=== PATIENT | female | born 1990 | race Caucasian/White ===

== ENCOUNTER 2018-03-07 11:14 | Emergency (ER) | payer MEDICAID, SELFPAY ==
[2018-03-07 11:15] VITALS: BP 117/70; PULSE 115; RESP 18; TEMP 37.1; O2SAT 97; BMI 32.1
[2018-03-07 11:47] LABS: Mucous, Urine 0 SEEN /hpf (<or=2+)
[2018-03-07 11:50] LABS: Color, Urine Yellow (Yellow); Glucose, Dipstick Normal (Normal); Ketone-Dipstick Negative (Negative); Leukocyte Esterase-Dipstick 500 /ul (Negative); Nitrite-Dipstick Positive (Negative); Occult Blood-Urine 50 /ul (Negative); Protein-Dipstick 30 mg/dl (Negative); Urine Bilirubin Dipstick Negative (Negative); Urine Clarity Sl. Cloudy (Clear); Urine Urobilinogen Normal (Normal); Urine pH 6.5 (5.0 - 8.0)
[2018-03-07 11:53] LABS: Internal QC Validated? YES +Cl - CLEAR BKGD; Pregnancy, Urine Negative Negative
[2018-03-07 12:15] LABS: Bacteria 4+ /hpf (None Seen); Red Blood Cells-Urine 0-5 SEEN /hpf (0-5); Squamous Epithelial Cells - UA 0-5 SEEN /hpf (5-10); White Blood Cells 10-25 SEEN /hpf (0-5)
--- NOTE | 2018-03-07 12:28 | ED.DCSUM_ITS ---
- ER Visit Summary Date of Service: 03/07/18 Chief Complaint: [Back pain] History of Present Illness: The patient is a 28 F [presents the emergency department with low back discomfort ?3 days. Patient states the pain is mild at this time and rates it a 5 out of 10. Patient denies any injury to her back. Patient denies dysuria however she has had urinary frequency. Patient states she has had similar pain in the past when she has had a urinary tract infection. Last menstrual period was about 6 months ago due to the fact that she is on the Depo shot.] Patient denies any fever or vomiting. Patient denies any pain down the legs. Denies change in bowel or bladder function otherwise. Physical Examination: [HEENT-PERRLA, EOMI. Cranial nerves II through XII grossly intact. TMs clear. Mucous membranes moist. No adenopathy. Cardiovascular-regular rate and rhythm without murmur or ectopy Lungs-clear to auscultation, chest wall stable without crepitus or subcu emphysema Abdomen-normoactive bowel sounds, soft, nontender, no rebound or rigidity, no peritoneal signs. Back exam-I cannot reproduce her pain with palpation of her back. She has no tenderness in the thoracic or lumbar spine. Patient has negative straight leg raises. Deep tendon reflexes are plus 2 out of 4 bilaterally at the patella and Achilles. Patient has normal L5 extension. Extremities-intact ?4, normal range of motion, normal pulses, atraumatic] Test Results: [Urinalysis obtained was positive for UTI. Patient had 500 leukocyte esterase, positive nitrites, +10-25 WBCs and +4 bacteria.] Urine hCG was negative Emergency Department Course and Treatment: [Patient was started on Bactrim] Treatment Plan: [Patient will be started on Bactrim and Pyridium] Disposition: [Discharged home in stable condition] Impression: [Urinary tract infection] This note was generated with [employer] dictation software. It may contain incorrect words, spelling, and punctuation that were not noted in review of the chart prior to signing ED Disposition - Plan for ED Patient: Chief Complaint: Back Referrals: Matti Burr DO [Primary Care Provider] -
--- NOTE | 2018-03-07 12:28 | ED.DEP ---
ED Disposition - Plan for ED Patient: Chief Complaint: Back Instructions: ED UTI Cystitis Female Prescriptions: Phenazopyridine HCl [Pyridium] 200 mg PO BID PRN PRN #10 tab PRN Reason: Pain Smz/Tmp Ds [Bactrim Ds] 1 tab PO BID #10 tab Referrals: Matti Burr DO [Primary Care Provider] - 3-5 Days
[2018-03-07] MEDS: Smz/Tmp Ds Tablet 1 TABLET PO (12:42)
[2018-03-07 12:44] VITALS: BP 113/59; PULSE 72; RESP 16; O2SAT 98
== END 2018-03-07 12:45 | disposition home or self-care (01) ==
LOC: ED 12:44
PROVIDERS: Emergency Provider Emergency Medicine; Family Provider Preventive Medicine Occupational Medicine; PCP Preventive Medicine Occupational Medicine
DX: N39.0 Urinary tract infection, site not specified (principal); Z72.0 Tobacco use; Z79.899 Other long term (current) drug therapy
CPT/HCPCS: 81001; 81025; 99283; A4216

== ENCOUNTER 2018-07-16 10:52 | Emergency (ER) | payer MEDICAID, SELFPAY ==
[2018-07-16 10:53] VITALS: BP 131/93; PULSE 99; RESP 18; TEMP 37.3; O2SAT 98; BMI 32.8
--- NOTE | 2018-07-16 11:03 | ED.VISSUMM ---
- ER Visit Summary Date of Service: 07/16/18 Chief Complaint: Left ankle injury History of Present Illness: The patient is a 28 F who presents with a left ankle injury that occurred yesterday. Patient states her uncle picked her up and they fell. Patient states she everted her ankle. Patient states her uncle landed on the lateral aspect of her ankle. Patient states she felt and heard a pop. Patient states her pain is worse with movement and weightbearing. Patient denies any paresthesias or weakness. Patient denies any head injury or loss of consciousness. Patient denies any other injuries. Physical Examination: Vital signs are stable. Patient is afebrile. Patient is in no acute distress. Musculoskeletal exam reveals tenderness over the lateral malleolus. There is no bony crepitance or step-off. Range of motion was limited in all motions of the left ankle secondary to pain. Pedal pulses were equal bilaterally. Capillary refill is less than 2 seconds in all digits. Sensation was intact to light touch in all digits. There is no tenderness over the fifth metatarsal or proximal fibula. Test Results: X-rays of the left ankle were obtained. There is no acute fracture. Emergency Department Course and Treatment: Patient was given an Aircast. Patient was instructed to ice and elevate the left ankle. Patient was instructed to take Tylenol or ibuprofen as needed for pain. Patient was instructed to follow-up with her primary care physician in 7-10 days. Patient understood and was agreeable with the plan. All questions were answered. Disposition: Discharge home Impression: Acute sprain left ankle This note was generated with [employer] dictation software. It may contain incorrect words, spelling, and punctuation that were not noted in review of the chart prior to signing ED Disposition - Plan for ED Patient: Disposition: Home or Assisted Living Chief Complaint: Lower Extremity Injury Diagnosis: Sprain of left ankle Instructions: ED Sprain Ankle W X Ray Referrals: Matti Burr DO [Primary Care Provider] -
== END 2018-07-16 12:49 | disposition home or self-care (01) ==
PROVIDERS: Emergency Provider Emergency Medicine; Family Provider Preventive Medicine Occupational Medicine; PCP Preventive Medicine Occupational Medicine
DX: S93.402A Sprain of unspecified ligament of left ankle, initial encounter (principal); W04.XXXA Fall while being carried or supported by other persons, initial encounter; Y93.9 Activity, unspecified; Y92.9 Unspecified place or not applicable; Y99.9 Unspecified external cause status; F98.8 Other specified behavioral and emotional disorders with onset usually occurring in childhood and adolescence; Z72.0 Tobacco use; Z79.899 Other long term (current) drug therapy
CPT/HCPCS: 73610; 99283

== ENCOUNTER 2018-07-23 19:39 | Emergency (ER) | payer MEDICAID, SELFPAY ==
[2018-07-23 19:40] VITALS: BP 134/75; PULSE 65; RESP 18; TEMP 36.8; O2SAT 100; BMI 34.0
[2018-07-23 20:01] VITALS: RESP 16
[2018-07-23 20:30] LABS: Absolute Lymphocyte Count 3.34 X10^3/ul (0.83-4.51); Absolute Neutrophil Count 4.2 X10^3/uL (2.0-7.7); Basophil# 0.02 X10^3/uL; Basophil% 0.2 % (0-1); Eosinophil# 0.25 X10^3/uL; Hematocrit 37.8 % (37-47); Hemoglobin 13.2 g/dl (12.0-15.0); Lymphocyte # 3.34 X10^3/ul (4.0); Lymphocyte % 40.6 % (19-41); Mean Corp Hgb Conc 34.9 g/gl (32-36); Mean Corpuscular Hgb 35.1 pg (27.0-32.0); Mean Corpuscular Volume 100.5 fL (81-99); Mean Platelet Vol. 8.3 fl (6.2-12.0); Monocyte# 0.41 X10^3/uL; Neutrophil % 51.1 % (47-70); Platelet Count 296 K/mm3 (150-450); RBC Distribution Width CV 12.6 % (11.6-14.6); RBC Distribution Width SD 46.2 fl (35.1-43.9); Red Blood Count 3.76 M/mm3 (4.2-5.4); White Blood Count 8.2 K/mm3 (4.4-11.0)
[2018-07-23 20:42] LABS: POSITIVE COUNT NO; POSITIVE DIFFERENTIAL NO; POSITIVE MORPHOLOGY NO
[2018-07-23 20:51] LABS: Anion Gap 6 (5-15); BUN 15 mg/dL (7-18); BUN/Creat Ratio 17.7 RATIO (10-20); Calcium,Total 8.9 mg/dL (8.5-10.1); Chloride 108 mmol/L (98-107); Creatinine, Serum 0.85 mg/dL (0.55-1.02); EST Glomerular Filtration Rate 85 mL/min (>60); Est Glom Filt Rate - Afr Amer 103 mL/min (>60); Estimated Creatinine Clearance 82.24 ml/min; Glucose 101 mg/dL (74-106); Potassium 3.7 mmol/L (3.5-5.1); Sodium Level 142 mmol/L (136-145)
[2018-07-23 21:00] VITALS: RESP 18
[2018-07-23 21:02] LABS: Alcohol, Blood (Medical)-Serum < 3.0 mg/dL
[2018-07-23 21:03] LABS: Pregnancy, Serum, hCG Quali. NEGATIVE Negative (0-9 Nonpreg)
[2018-07-23 21:04] LABS: Amphetamine Urine VISTA NEGATIVE (<1000 ng/mL); Barbiturate Urine VISTA NEGATIVE (< 200 ng/mL); Benzodiazepine Urine VISTA NEGATIVE (< 200 ng/mL); Cocaine Urine VISTA NEGATIVE (< 300 ng/mL); Ecstacy Urine VISTA NEGATIVE (< 500 ng/mL); Methadone Urine VISTA NEGATIVE (< 300 ng/mL); PCP Urine VISTA NEGATIVE (< 25 ng/mL); THC Urine VISTA NEGATIVE (< 50 ng/mL); Vista UDS pH Range 6
--- NOTE | 2018-07-23 21:26 | ED.RN ---
krystina richards at the patients bedside for one on one observation of patient at this time
--- NOTE | 2018-07-23 21:37 | ED.VISSUMM ---
- ER Visit Summary Date of Service: 07/23/18 Chief Complaint: Depression History of Present Illness: The patient is a [address] Hair. She reports that she has a long-standing history of depression, but has not been on medication since she was a child. Seems to is worsened over the past 6 months. She reports that she does not have a suicidal plan as of right now. However, she does not feel safe around her kids. She has a 2-year-old and 4-year-old at home. She reports that today she snatched up her son and freaked out. Physical Examination: Vitals: Stable. Afebrile. General: Well-nourished and well-developed. Head: Normocephalic atraumatic. Neck: Supple, no lymphadenopathy. No JVD. Nontender. Cardiovascular: Regular rate and rhythm. No murmurs. Respiratory: No respiratory distress. Clear to auscultation bilaterally. Abdominal: Soft, nontender, nondistended, normal bowel sounds. No guarding, rebound, or peritoneal signs. Back: Nontender. Extremities: Nontender, no edema. Skin: Normal color, no rash. Neurologic: Alert and oriented ?3. Cranial nerves II through XII are intact. Normal strength and sensation. Mental status exam: Patient appears their stated age. Good posture and grooming. Good eye contact. Normal rate, volume, and latency of speech. No suicidal or homicidal ideation. No auditory or visual hallucinations. Flow of thought is logical. Insight and judgment is fair. Test Results: CBC is normal. Chem-7 is marked for chloride of 108. test is negative. Tox screen is negative. Alcohol levels negative. Emergency Department Course and Treatment: Patient's resting comfortably throughout her stay and emerge part without complaint. Treatment Plan: Patient will be discussed the counseling center. They will be in to assess her. Disposition: [] Impression: [] This note was generated with [employer] dictation software. It may contain incorrect words, spelling, and punctuation that were not noted in review of the chart prior to signing ED Disposition - Plan for ED Patient: Chief Complaint: Suicidal Referrals: Matti Burr DO [Primary Care Provider] -
--- NOTE | 2018-07-23 21:44 | ED.DCSUM_ITS ---
- ER Visit Summary Date of Service: 07/23/18 Chief Complaint: Depression History of Present Illness: The patient is a [address] Hair. She reports that she has a long-standing history of depression, but has not been on medication since she was a child. Seems to is worsened over the past 6 months. She reports that she does not have a suicidal plan as of right now. However , she does not feel safe around her kids. She has a 2-year-old and 4-year-old at home. She reports that today she snatched up her son and freaked out. Physical Examination: Vitals: Stable. Afebrile. General: Well-nourished and well-developed. Head: Normocephalic atraumatic. Neck: Supple, no lymphadenopathy. No JVD. Nontender. Cardiovascular: Regular rate and rhythm. No murmurs. Respiratory: No respiratory distress. Clear to auscultation bilaterally. Abdominal: Soft, nontender, nondistended, normal bowel sounds. No guarding, rebound, or peritoneal signs. Back: Nontender. Extremities: Nontender, no edema. Skin: Normal color, no rash. Neurologic: Alert and oriented ?3. Cranial nerves II through XII are intact. Normal strength and sensation. Mental status exam: Patient appears their stated age. Good posture and grooming. Good eye contact. Normal rate, volume, and latency of speech. No suicidal or homicidal ideation. No auditory or visual hallucinations. Flow of thought is logical. Insight and judgment is fair. Test Results: CBC is normal. Chem-7 is marked for chloride of 108. test is negative. Tox screen is negative. Alcohol levels negative. Emergency Department Course and Treatment: Patient's resting comfortably throughout her stay and emerge part without complaint. Treatment Plan: Patient will be discussed the counseling center. They will be in to assess her. Disposition: [] Impression: [] This note was generated with [employer] dictation software. It may contain incorrect words, spelling, and punctuation that were not noted in review of the chart prior to signing ED Disposition - Plan for ED Patient: Chief Complaint: Suicidal Referrals: Matti Burr DO [Primary Care Provider] -
--- NOTE | 2018-07-23 21:45 | ED.RN ---
GAVE CHART INFORMATION TO PRANAV. I HAVE TO GO SEE SOMEONE ELSE, I WILL CHECK ON THIS PATIENT BEFORE I GO AND THEN I WILL BE BACK
[2018-07-23 22:00] VITALS: RESP 16
[2018-07-23 23:00] VITALS: RESP 16
[2018-07-24] VITALS (8 sets, daily range): BP systolic 108–118; BP diastolic 55–76; PULSE 70–84; RESP 14–16; O2SAT 97–98
--- NOTE | 2018-07-24 05:48 | ED.RN ---
matt hendricks called requested information about patient at this time. Unable to read Grover Mathews's assessment at this time. Dictation sent at this time
--- NOTE | 2018-07-24 09:32 | NURSING ---
CALLED [facility], TALKED TO [facility]. THEY WILL CALL BACK.
--- NOTE | 2018-07-24 09:42 | NURSING ---
[facility], [facility], CALLED. SHE CALLED [facility], PATIENT IS NOT ACCEPTED AT THIS TIME
--- NOTE | 2018-07-24 10:53 | NURSING ---
CALLED [facility], TALKED TO [facility]. SHE WILL CHECK WITH [facility] ABOUT PATIENT STATUS.
--- NOTE | 2018-07-24 11:09 | NURSING ---
[facility], [facility], CALLED BACK. [facility] WILL BE OVER SHORTLY
[2018-07-24] MEDS: LORazepam 1 MG Tablet PO (14:32)
--- NOTE | 2018-07-24 15:21 | NURSING ---
CALLED [facility] FOR TRANSPORT. ETA IS 1700
== END 2018-07-24 17:07 ==
LOC: ED 20:28
PROVIDERS: Emergency Provider Emergency Medicine; Family Provider Preventive Medicine Occupational Medicine; PCP Preventive Medicine Occupational Medicine
DX: F32.9 Major depressive disorder, single episode, unspecified (principal); F41.9 Anxiety disorder, unspecified; R45.851 Suicidal ideations; F98.8 Other specified behavioral and emotional disorders with onset usually occurring in childhood and adolescence; Z72.0 Tobacco use; Z79.899 Other long term (current) drug therapy
CPT/HCPCS: 36415; 80048; 80307; 80320; 84703; 85025; 99284; G0480

== ENCOUNTER 2019-02-27 09:01 | Emergency (ER) | payer MEDICAID, SELFPAY ==
[2019-02-27 09:02] VITALS: BP 130/72; PULSE 111; RESP 18; TEMP 36.8; O2SAT 98; BMI 37.2
--- NOTE | 2019-02-27 09:19 | ED.VISSUMM ---
- ER Visit Summary Date of Service: 02/27/19 Chief Complaint: Abdominal cramping History of Present Illness: The patient is a 29 F presenting for evaluation secondary to abdominal cramping. Patient is a at 6 weeks . Patient reports that over the course of the last 2 days she has been dealing with lower abdominal cramping predominantly on the left. Patient states that these are continuous symptoms with no exacerbating or relieving qualities. She denies any dysuria hematuria vaginal bleeding or discharge. She does endorse that she has a mild amount of cramping in her back. No nausea or vomiting. No fevers associated with this. Review of systems otherwise negative. Physical Examination: Vital signs are within normal limits, patient is afebrile. General: Patient is well-nourished well-developed and in no acute distress. Head: Normocephalic, atraumatic Eyes: Pupils equal round and reactive bilaterally, extra occular motion intact bialterally ENT: Moist mucous membranes Neck: Supple, no lymphadenopathy, no JVD, no meningismus CVS: Heart regular rate and rhythm, no murmurs, rubs or gallops, radial pulses 2+ bilaterally Resp: Respirations nondistressed, lung sounds clear bilaterally Abdomen: Soft, nontender, nondistended, no palpable masses, normal bowel sounds Back: Nontender Extremities: Nontender, atraumatic, active full range of motion, no peripheral edema Skin: warm, no rashes, no petechia Neuro: Alert and oriented x 4, CN 2-12 intact, no lateralizing neurological defecits Psyc: Normal affect Test Results: Urinalysis demonstrates 0-5 white cells, and +1 bacteria Emergency Department Course and Treatment: Patient presented secondary to pelvic cramping. Physical exam is benign, I do not believe that any formal imaging or blood work is indicated. Urinalysis showed +1 bacteria. Bedside ultrasound demonstrates a gestational sac, but no identified pole on the transabdominal study. Given the patient's bacteriuria, I believe that it is appropriate to treat the patient with a short course of Macrobid. Patient will follow up with ATMOSPHERIC SCIENTIST. Disposition: Discharge Impression: 1. UTI 2. 6-week This note was generated with [employer] software. It may contain incorrect words, spelling, and punctuation that were not noted in review of the chart prior to signing ED Disposition - Plan for ED Patient: Disposition: Home or Assisted Living Diagnosis: UTI (urinary tract infection), First trimester Instructions: ED UTI Cystitis Female Prescriptions: Nitrofurantoin Macrocrystals [Macrobid] 100 mg PO Q12 #6 cap Referrals: Mallory Del Rio MD [STAFF PHYSICIAN] - 1-2 Weeks
--- NOTE | 2019-02-27 09:22 | ED.DCSUM_ITS ---
- ER Visit Summary Date of Service: 02/27/19 Chief Complaint: Abdominal cramping History of Present Illness: The patient is a 29 F presenting for evaluation secondary to abdominal cramping. Patient is a at 6 weeks . Patient reports that over the course of the last 2 days she has been dealing with lower abdominal cramping predominantly on the left. Patient states that these are continuous symptoms with no exacerbating or relieving qualities. She denies any dysuria hematuria vaginal bleeding or discharge. She does endorse that she has a mild amount of cramping in her back. No nausea or vomiting. No fevers associated with this. Review of systems otherwise negative. Physical Examination: Vital signs are within normal limits, patient is afebrile. General: Patient is well-nourished well-developed and in no acute distress. Head: Normocephalic, atraumatic Eyes: Pupils equal round and reactive bilaterally, extra occular motion intact bialterally ENT: Moist mucous membranes Neck: Supple, no lymphadenopathy, no JVD, no meningismus CVS: Heart regular rate and rhythm, no murmurs, rubs or gallops, radial pulses 2+ bilaterally Resp: Respirations nondistressed, lung sounds clear bilaterally Abdomen: Soft, nontender, nondistended, no palpable masses, normal bowel sounds Back: Nontender Extremities: Nontender, atraumatic, active full range of motion, no peripheral edema Skin: warm, no rashes, no petechia Neuro: Alert and oriented x 4, CN 2-12 intact, no lateralizing neurological defecits Psyc: Normal affect Test Results: Urinalysis demonstrates 0-5 white cells, and +1 bacteria Emergency Department Course and Treatment: Patient presented secondary to pelvic cramping. Physical exam is benign, I do not believe that any formal imaging or blood work is indicated. Urinalysis showed +1 bacteria. Bedside ultrasound demonstrates a gestational sac, but no identified pole on the transabdominal study. Given the patient's bacteriuria, I believe that it is appropriate to treat the patient with a short course of Macrobid. Patient will follow up with DIGITAL CONTENT SPECIALIST. Disposition: Discharge Impression: 1. UTI 2. 6-week This note was generated with [employer] software. It may contain incorrect words, spelling, and punctuation that were not noted in review of the chart prior to signing ED Disposition - Plan for ED Patient: Disposition: Home or Assisted Living Diagnosis: UTI (urinary tract infection), First trimester Instructions: ED UTI Cystitis Female Prescriptions: Nitrofurantoin Macrocrystals [Macrobid] 100 mg PO Q12 #6 cap Referrals: Mallory Del Rio MD [STAFF PHYSICIAN] - 1-2 Weeks
[2019-02-27 09:32] LABS: Mucous, Urine 0 SEEN /hpf (<or=2+); Red Blood Cells-Urine 0 SEEN /hpf (0-5)
[2019-02-27 09:36] LABS: Color, Urine Yellow (Yellow); Glucose, Dipstick Normal (Normal); Ketone-Dipstick Negative (Negative); Leukocyte Esterase-Dipstick 100 /ul (Negative); Nitrite-Dipstick Negative (Negative); Occult Blood-Urine Negative /ul (Negative); Protein-Dipstick Negative (Negative); Specific Gravity, Urine 1.015 (1.002-1.030); Urine Bilirubin Dipstick Negative (Negative); Urine Clarity Clear (Clear); Urine Urobilinogen Normal (Normal)
[2019-02-27 09:45] LABS: Bacteria 1+ /hpf (None Seen); Squamous Epithelial Cells - UA 0-5 SEEN /hpf (5-10); White Blood Cells 0-5 SEEN /hpf (0-5)
== END 2019-02-27 09:57 | disposition home or self-care (01) ==
PROVIDERS: Emergency Provider Emergency Medicine; Family Provider Preventive Medicine Occupational Medicine; PCP Preventive Medicine Occupational Medicine
DX: O23.41 Unspecified infection of urinary tract in pregnancy, first trimester (principal); Z3A.01 Less than 8 weeks gestation of pregnancy
CPT/HCPCS: 81001; 99282

== ENCOUNTER 2019-08-28 19:20 | Outpatient (CLI) | payer MEDICAID, SELFPAY ==
[2019-08-28 19:45] VITALS: BMI 34.7
[2019-08-28 20:19] LABS: Bacteria 0 SEEN /hpf (None Seen); Mucous, Urine 0 SEEN /hpf (<or=2+); Red Blood Cells-Urine 0 SEEN /hpf (0-5); White Blood Cells 0 SEEN /hpf (0-5)
[2019-08-28 20:24] LABS: Color, Urine Yellow (Yellow); Glucose, Dipstick Normal (Normal); Ketone-Dipstick Negative (Negative); Leukocyte Esterase-Dipstick 25 /ul (Negative); Nitrite-Dipstick Negative (Negative); Occult Blood-Urine Negative /ul (Negative); Protein-Dipstick Negative (Negative); Urine Bilirubin Dipstick Negative (Negative); Urine Clarity Clear (Clear); Urine Urobilinogen Normal (Normal)
[2019-08-28 20:33] LABS: Squamous Epithelial Cells - UA 0-5 SEEN /hpf (5-10)
[2019-08-28 21:19] VITALS: RESP 18
--- NOTE | 2019-08-29 06:49 | OB.TRI.NOTE ---
History of Present Illness Date of Service: 08/28/19 Was patient seen by the physician?: No Reason For Visit: CRAMPING Date of Service: 08/28/19 Final MYLA: 10/23/19 Gestational age: 32 Weeks and 1 Days Allergies No Known Allergies Allergy (Verified 08/28/19 19:45) Laboratory Studies: Laboratory Tests 08/28/19 Range/Units 19:20 Urine Color Yellow (Yellow) Urine Clarity Clear (Clear) Urine pH 8.0 (5.0 - 8.0) Ur Specific [place] 1.010 (1.002-1.030) Urine Protein Negative (Negative) mg/dl Urine Glucose (UA) Normal (Normal) mg/dl Urine Ketones Negative (Negative) mg/dl Urine Occult Blood Negative (Negative) /ul Urine Nitrite Negative (Negative) Urine Bilirubin Negative (Negative) mg/dL Urine Urobilinogen Normal (Normal) mg/dl Ur Leukocyte Esterase 25 H (Negative) /ul Urine RBC 0 SEEN (0-5) /hpf Urine WBC 0 SEEN (0-5) /hpf Ur Squamous Epith Cells 0-5 SEEN (5-10) /hpf Urine Bacteria 0 SEEN (None Seen) /hpf Urine Mucus 0 SEEN (<or=2+) /hpf Physical Exam Vitals: Vital Signs Resp 18 08/28/19 21:19 NST - FHR Rate Baby A Baseline: 145 Variability:: Moderate Accelerations:: 15 x 15 Decelerations:: None NST Reactive:: Yes, Appropriate for gestational age FHR Category:: Category I Uterine Activity:: no ctxs Impression/Plan 29-year-old 4 para 3 high risk multigravida patient with threatened labor. Abdominal cramping, no evidence of labor. Patient was discharged home with labor precautions and follow-up in the office as scheduled or as needed.
== END 2019-08-28 21:15 | disposition home or self-care (01) ==
LOC: WPOUT 19:25 → WP 19:25
PROVIDERS: Advanced Practice Midwife; Family Provider Preventive Medicine Occupational Medicine; PCP Preventive Medicine Occupational Medicine; Visit Provider Obstetrics & Gynecology
DX: O60.03 Preterm labor without delivery, third trimester (principal); Z3A.32 32 weeks gestation of pregnancy
CPT/HCPCS: 59025; 59050; 81001; 99218; G0378

== ENCOUNTER 2019-09-30 19:10 | Outpatient (CLI) | payer MEDICAID, SELFPAY ==
[2019-09-30 20:04] VITALS: BMI 35.4
[2019-09-30 20:39] LABS: Color, Urine Yellow (Yellow); Glucose, Dipstick Normal (Normal); Ketone-Dipstick Negative (Negative); Leukocyte Esterase-Dipstick Negative /ul (Negative); Nitrite-Dipstick Negative (Negative); Occult Blood-Urine Negative /ul (Negative); Protein-Dipstick Negative (Negative); Specific Gravity, Urine 1.005 (1.002-1.030); Urine Bilirubin Dipstick Negative (Negative); Urine Clarity Clear (Clear); Urine Urobilinogen Normal (Normal)
[2019-09-30 20:49] LABS: ROM Internal Control Test YES-OK TO RESULT pt. (Internal QC); ROM Patient Test Negative (Negative)
--- NOTE | 2019-10-03 10:02 | OB.TRI.HP_ITS ---
History of Present Illness Date of Service: 09/30/19 Was patient seen by the physician?: No Reason For Visit: CONSTIPATION Date of Service: 09/30/19 Final MYLA: 10/23/19 Gestational age: 36w 5d Allergies No Known Allergies Allergy (Verified 09/30/19 20:06) Laboratory Studies: Laboratory Tests 09/30/19 09/30/19 Range/Units 20:00 20:00 Urine Color Yellow (Yellow) Urine Clarity Clear (Clear) Urine pH 7.0 (5.0 - 8.0) Ur Specific [place] 1.005 (1.002-1.030) Urine Protein Negative (Negative) mg/dl Urine Glucose (UA) Normal (Normal) mg/dl Urine Ketones Negative (Negative) mg/dl Urine Occult Blood Negative (Negative) /ul Urine Nitrite Negative (Negative) Urine Bilirubin Negative (Negative) mg/dL Urine Urobilinogen Normal (Normal) mg/dl Ur Leukocyte Esterase Negative (Negative) /ul Vag Amniotic Fld Detect Negative (Negative) NST - FHR Rate Baby A Baseline: 140 Variability:: Moderate Accelerations:: 15 x 15 Decelerations:: None NST Reactive:: Yes FHR Category:: Category I Uterine Activity:: irreg. ctxs Impression/Plan 9-year-old 4 para 3 high risk multigravida presents complaining of constipation. Symptomatic measures were reviewed with patient. Discharge home with routine instructions. Urinalysis was negative for acute infection. ROM plus was negative for evidence of rupture membranes. Follow-up in the office as needed or as scheduled.
== END 2019-09-30 21:30 | disposition home or self-care (01) ==
LOC: WPOUT 19:16 → WP 19:59
PROVIDERS: Family Provider Preventive Medicine Occupational Medicine; PCP Preventive Medicine Occupational Medicine; Referring Provider Advanced Practice Midwife; Visit Provider Advanced Practice Midwife
DX: O99.613 Diseases of the digestive system complicating pregnancy, third trimester (principal); Z3A.36 36 weeks gestation of pregnancy; K59.00 Constipation, unspecified
CPT/HCPCS: 59025; 59050; 81002; 84112; 99218; G0378

== ENCOUNTER 2019-10-15 07:00 | Inpatient (IN) | payer MEDICAID, SELFPAY ==
[2019-10-15 07:27] VITALS: BMI 35.9
[2019-10-15] MEDS: Lactated Ringers 1,000 ML 50 ML IV (07:50)
[2019-10-15] MEDS: Oxytocin 30 units/NS 500 ml 30 UNITS/500 ML IV.SOLN IV (07:59)
[2019-10-15 08:08] LABS: Absolute Lymphocyte Count 2.52 X10^3/uL (0.83-4.51); Absolute Neutrophil Count 6.9 X10^3/uL (2.0-7.7); Basophil# 0.03 X10^3/uL; Basophil% 0.3 % (0-1); Eosinophil# 0.11 X10^3/uL; Eosinophils% 1.1 % (0-5); Hematocrit 33.1 % (37-47); Hemoglobin 12.1 g/dL (12.0-15.0); Lymphocyte # 2.52 X10^3/ul (4.0); Lymphocyte % 24.7 % (19-41); Mean Corp Hgb Conc 36.6 g/dL (32-36); Mean Corpuscular Hgb 36.7 pg (27.0-32.0); Mean Corpuscular Volume 100.3 fL (81-99); Monocyte# 0.62 X10^3/uL; Monocyte% 6.1 % (0-10); NRBC Flagged by Analyzer 0 % (0-5); Neutrophil # 6.86 X10^3/uL (2.7-7.7); Neutrophil % 67.2 % (47-70); Platelet Count 254 K/mm3 (150-450); RBC Distribution Width SD 47.6 fl (35.1-43.9); White Blood Count 10.2 K/mm3 (4.4-11.0)
[2019-10-15] MEDS: 0.9% Normal Saline 100 ML IV.SOLN. IY (08:25)
[2019-10-15] MEDS: Lactated Ringers 500 ML 999 ML IV (11:14)
[2019-10-15] MEDS: fentaNYL-bupivacaine (epidural) 100 ML BAG EPIDURAL ×2 (12:23→17:00)
[2019-10-15] MEDS: Acetaminophen 325 MG Tablet PO (13:05)
[2019-10-15] MEDS: Lactated Ringers 1,000 ML 200 ML IV ×2 (13:10→17:35)
[2019-10-15] MEDS: Oxytocin 30 units/NS 500 ml 30 UNITS/500 ML IV.SOLN 334 UNITS IV (17:59)
--- NOTE | 2019-10-15 18:15 | HP.PCM_ITS ---
History Date of Admission: 10/15/19 Final MYLA: 10/23/19 Gestational age: 38 Weeks and 6 Days History of this : This is a 29 year-old, 4 para 3 at 38-6/7 weeks with persistent decreased movement, high risk multigravida , tobacco use during presents for induction of labor. She denies any vaginal bleeding or leaking of fluid. She has irregular contractions. She is been complaining of pain severe enough that is been difficult to walk for several weeks. Apical history is significant for herpes, bipolar disorder, history of LEEP of the cervix for abnormal Pap smears, history of mitral valve prolapse, history of preeclampsia with prior pregnancies, history of trichomonas during the . Had 3 term vaginal deliveries in the past. Allergies No Known Allergies Allergy (Verified 10/15/19 07:28) Smoking Status: Current every day smoker Alcohol: None Number of Fetus(es): 1 History Past Pregnancies: Past Pregnancies Delivery Date Name GA/ Weeks Outcome Route Wt Sex Labor Length Anesthesia Delivery Location Provider FOB Expected Delivery Method: Spontaneous Vaginal Review of Systems Constitutional: Denies: Chills, Fever Eyes: Denies: Blurred vision Cardiovascular: Denies: Chest Pain Respiratory: Denies: Cough Genitourinary: Reports: - - some pressure. Denies: Dysuria Skin: Denies: Rash Neurological: Denies: Blurred vision, Change in Speech Psychiatric: Denies: Anxiety, Depression Hematologic/ Lymphatic: Denies: Anemia Physical Exam General: Alert, Cooperative, No apparent distress Cardiovascular: Regular rate Lungs: Normal air movement Abdomen: Soft, Non-Distended, Gravid, Appropriate for Gestational Age Extremities:: Other - trace edema Neurological: Cranial nerves II-XII grossly intact, Deep Tendon Reflexes 2+/[address] SQL DEVELOPER: Normal external genitalia Estimated gestational size: Appropriate for gestational size Presentation: Cephalic Cervix Dilation (cm): 1 Station: -2 Effacement (%): 80 Assessment/Plan This is a 29 year-old, 4 para 3 at 38-6/7 weeks gestation for induction of labor. Risk benefits alternatives of this patient have been discussed with patient, questions were answered her satisfaction consent was signed. Plan Saurav, Pitocin outer artificial rupture membranes for induction of labor. Estimated weight is less than 5000 g clinically and pelvis is clinically adequate to expect vaginal delivery. She would like tubal ligation, will attempt to do this depending on acuity of the unit, timing of delivery, and availability of OR staff. Seizure note: At approximately 815 Donaldson catheter was placed over stylette and to the internal cervical loss in the balloon was inflated to 30 cc, patient tolerated procedure well as did the fetus.
--- NOTE | 2019-10-15 18:20 | OP.PCM_ITS ---
Vaginal Delivery Maternal Presentation: Medically Indicated Induction Method of Induction: Pitocin, Donaldson Bulb, Amniotomy Medical Reason for Induction: - - Decreased movement, tobacco use in , maternal obesity with BMI 35 Amniotic Membrane Rupture Type: Artificial Amniotic Fluid Description: Clear Final MYLA: 10/23/19 Gestational age: 38 Weeks and 6 Days Date of Procedure: 10/15/19 Pre-Operative Diagnosis: labor Post-Operative Diagnosis: same Surgery/ Procedure Performed: Spontaneous Vaginal Delivery Type of Anesthesia: Epidural Description of Procedure: A vigorous male infant was delivered [LISETH] over intact perineum. [A loose nuchal cord ?1 was easily reduced.] The remainder the was delivered with maternal pushing and gentle traction only in less than 15 seconds. The Pitocin infusion was initiated for active management of the third stage. The cord was clamped and cut [after 1 minute]. The was attended to by the waiting nursing staff. The placenta was delivered spontaneously and intact. The cervix and vagina were intact. Sponge and needle counts were correct. A vaginal sweep was completed by me. Department Store Manager Dallas Dean [id number] Presentation: LISETH Placental Delivery Description: Spontaneous Placenta Disposition: [facility] Cord Vessel Description: 3 Vessels Nuchal Cord Compression: Without compression Cord Entanglement: Around neck x 1, loose Drain: Donaldson to straight drain Estimated Blood Loss: 300 Infant A gender: Male (1 minute): 8 (5 minute): 9 Episiotomy Description: None Laceration: None Medications given after delivery: IV Pitocin Complications: None
[2019-10-15] MEDS: Acetaminophen 500 MG Tablet 1000 MG PO (19:22)
[2019-10-15 23:10] VITALS: BP 109/53; PULSE 72; RESP 18; TEMP 36.6
[2019-10-16 03:30] VITALS: BP 114/60; PULSE 71; RESP 17; TEMP 36.1
[2019-10-16 08:30] VITALS: BP 107/61; PULSE 75; RESP 24; TEMP 37.1; O2SAT 97
[2019-10-16] MEDS: Naproxen 250 MG Tablet 500 MG PO ×2 (08:30→16:16)
--- NOTE | 2019-10-16 08:35 | PCM.PN.OB ---
Subjective: pt seen at bedside, doing well. pt reports good pain control- has some cramping. pt would like PPTL- pt is hungry and wants epidural catheter out. we discussed option for Depo prior to dc home from hospital and then scheduling 5 weeks Lap B/l Salpingectomy- pt given option and prefers to have 5 week tubal ligation performed. pt reports mild lochia. Bottle feeding now- considering breast feeding when at home - Physical Exam Vitals/I&O's: Vital Signs Temp Pulse Resp BP 97.0 F L 71 17 114/60 10/16/19 03:30 10/16/19 03:30 10/16/19 03:30 10/16/19 03:30 Oxygen Delivery Method Room Air Weight: 92 kg Body Mass Index (BMI) 35.9 Intake and Output for Last 24 Hours 10/14/19 10/15/19 10/16/19 23:59 23:59 23:59 Intake Total 3074.15 / 3074.15 Output Total 900 / 900 350 / 350 Balance 2174.15 / 2174.15 -350 / -350 General: Alert, Oriented x3 Laboratory Results 10/15/19 07:50: Blood Type O POSITIVE, Antibody Screen NEGATIVE Current Medications Acetaminophen (Tylenol) 1,000 mg PO Q8H PRN PRN PRN Reason: Pain Score 1-3/10 Last Admin: 10/15/19 19:22 Dose: 1,000 mg Documented by: Bisacodyl (Dulcolax) 10 mg RECTAL UD PRN PRN Reason: If no BM Dibucaine (Dibucaine) 1 applic TOPICAL TID PRN PRN; Protocol PRN Reason: Discomfort Hydrocortisone (Hytone) 1 applic TOPICAL TID PRN PRN; Protocol PRN Reason: Discomfort Lactated Ringer's () 1,000 mls @ 15 mls/hr IV .Q48H PEPE Methylergonovine Maleate (Methergine) 0.2 mg IM X1 PRN PRN Reason: Excess bleeding/uterine atony Naproxen (Naprosyn) 500 mg PO Q8H PRN PRN PRN Reason: Pain Score 1-3/10 Ondansetron HCl (Zofran) 4 mg IV Q4H PRN PRN PRN Reason: Nausea Oxycodone HCl (Oxyir) 5 mg PO Q4H PRN PRN PRN Reason: Pain Score 6-10/10 Senna/Docusate Sodium (Senokot-S, Hafsa-Colace) 1 - 2 tablet PO DAILY PRN PRN PRN Reason: Constipation Simethicone (Mylicon) 80 mg PO PCHS PRN PRN Reason: Indigestion/Stomach pain Sodium Chloride () 5 - 15 ml IV UD PRN PRN Reason: SALINE FLUSH Medical Necessity - Tobacco Use Smoking Status: Current every day smoker Assessment/Plan PPD#1, doing we 1) OR notified that we will wait until 5 weeks to perform Lap B/L salpingectomy 2) routine care 3) pain mgmt
[2019-10-16] MEDS: MedroxyPROGESTERone 150 MG/ML Syringe IM (11:18)
[2019-10-16 12:26] VITALS: BP 116/57; PULSE 86; RESP 18; TEMP 36.7; O2SAT 96
--- NOTE | 2019-10-16 13:18 | NURSING ---
Reviewed student nurse charting and it is complete.
[2019-10-16] MEDS: Acetaminophen 500 MG Tablet 1000 MG PO ×2 (13:59→22:13)
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
[2019-10-16 16:20] VITALS: BP 117/67; PULSE 83; TEMP 36.2; O2SAT 97
[2019-10-16 20:56] VITALS: BP 126/61; PULSE 73; RESP 16; TEMP 36.4; O2SAT 96
[2019-10-16] MEDS: oxyCODONE 5 MG Tablet PO (21:07)
[2019-10-17 02:05] VITALS: BP 125/56; PULSE 77; RESP 16; TEMP 36.8
[2019-10-17] MEDS: Naproxen 250 MG Tablet 500 MG PO (06:20)
[2019-10-17 08:30] VITALS: BP 126/64; PULSE 80; RESP 16; TEMP 36.4
[2019-10-17] MEDS: oxyCODONE 5 MG Tablet PO (08:47)
[2019-10-17 12:57] VITALS: BP 123/49; PULSE 81; RESP 18; TEMP 36.4
--- NOTE | 2019-10-17 12:58 | PCM.PN.OB ---
Subjective: No complaints - Physical Exam Vitals/I&O's: Vital Signs Temp Pulse Resp BP Pulse Ox 97.5 F L 80 16 126/64 H 96 10/17/19 08:30 10/17/19 08:30 10/17/19 08:30 10/17/19 08:30 10/16/19 20:56 Oxygen Delivery Method Room Air Weight: 202 lb 13.204 oz Body Mass Index (BMI) 35.9 Intake and Output for Last 24 Hours 10/15/19 10/16/19 10/17/19 23:59 23:59 23:59 Intake Total 3074.15 / 3074.15 Output Total 900 / 900 350 / 350 Balance 2174.15 / 2174.15 -350 / -350 General: Alert, Oriented x3 Abdomen: Soft, Non Tender, Non-Distended - ff mid & below umb Extremities: No Calf Tenderness Current Medications Acetaminophen (Tylenol) 1,000 mg PO Q8H PRN PRN PRN Reason: Pain Score 1-310 Last Admin: 10/16/19 22:13 Dose: 1,000 mg Documented by: Bisacodyl (Dulcolax) 10 mg RECTAL UD PRN PRN Reason: If no BM Dibucaine (Dibucaine) 1 applic TOPICAL TID PRN PRN; Protocol PRN Reason: Discomfort Hydrocortisone (Hytone) 1 applic TOPICAL TID PRN PRN; Protocol PRN Reason: Discomfort Lactated Ringer's () 1,000 mls @ 15 mls/hr IV .Q48H [facility] Last Admin: 10/16/19 22:46 Dose: Not Given Documented by: Medroxyprogesterone Acetate (Depo-Provera) 150 mg IM .[id number] [facility] Last Admin: 10/16/19 11:18 Dose: 150 mg Documented by: Methylergonovine Maleate (Methergine) 0.2 mg IM X1 PRN PRN Reason: Excess bleeding/uterine atony Naproxen (Naprosyn) 500 mg PO Q8H PRN PRN PRN Reason: Pain Score 1-3/10 Last Admin: 10/17/19 06:20 Dose: 500 mg Documented by: Ondansetron HCl (Zofran) 4 mg IV Q4H PRN PRN PRN Reason: Nausea Oxycodone HCl (Oxyir) 5 mg PO Q4H PRN PRN PRN Reason: Pain Score 6-10/10 Last Admin: 10/17/19 08:47 Dose: 5 mg Documented by: Senna/Docusate Sodium (Senokot-S, Hafsa-Colace) 1 - 2 tablet PO DAILY PRN PRN PRN Reason: Constipation Simethicone (Mylicon) 80 mg PO PCHS PRN PRN Reason: Indigestion/Stomach pain Sodium Chloride () 5 - 15 ml IV UD PRN PRN Reason: SALINE FLUSH Medical Necessity - Tobacco Use Smoking Status: Current every day smoker Assessment/Plan PPD#2 D/c home Encouraged safe sleep habits for mom & baby
--- NOTE | 2019-10-17 13:00 | DCINST_ITS ---
Discharge Diet: No Restrictions Discharge Activity: No Restrictions, May Shower May resume sexual activity in: 6 weeks Weight Bearing Status: Weight bearing as tolerated Additional Instructions: If you experience any of the following, contact your healthcare provider. * Bleeding that soaks a pad every hour for 2 hours * Fever 100.4 or higher * Unrelieved incision or abdominal pain * Swelling, redness, discharge or bleeding from your incision or episiotomy site * Your incision begins to separate * Problems urinating (including inability to urinate or burning while urinating). * Visual changes * Severe headache * Flu-like symptoms * Pain or redness in one of both of your breasts * Pain, warmth, tenderness or swelling in your legs, especially the calf area * Frequent nausea and vomiting * Symptoms of depression or anxiety If you experience any of the following, call 911 or go to the nearest Emergency Room. * Chest pain * Problems breathing * Seizure activity * Partial or complete paralysis of a body part, slurred speech, weakness or drooping of the face, or a sudden inability to walk or hold your balance Allergies/Adverse Reactions: Allergies No Known Allergies Allergy (Verified 10/15/19 07:28) Medications to take at Discharge Acetaminophen [Tylenol] 1,000 mg PO Q8H PRN PRN #60 tab 10/17/19 Naproxen [Naprosyn] 500 mg PO Q8H PRN PRN #60 tab 10/17/19 The following prescriptions were given: Naproxen [Naprosyn] 500 mg PO Q8H PRN PRN #60 tab PRN Reason: Pain Score 1-3/10 Transmission Status: Pending to [facility] [facility]. Acetaminophen [Tylenol] 1,000 mg PO Q8H PRN PRN #60 tab PRN Reason: Pain Score 1-3/10 Transmission Status: Pending to [facility] Primary Care Physician: Matti Burr DO [Primary Care Provider] - Test Results: Test results from this visit will be discussed in further detail at your follow- up appointment, if applicable.
--- NOTE | 2019-10-17 13:00 | CASEMGMT ---
Social Work Labor and Delivery Unit Summary: Chart reviewed. No concerns on mother/child interactions or bonding noted. No reported concerns by nursing to this staff writer. Call placed to [facility] ([facility]) Michael Carnes at [phone] extension [phone]. Message left to call this staff writer. Received call back from Michael. Reported brief maternal and history for continuity of care of this family. Reported that MOB has been caring for baby. Reported possible early use of marijuana but not positive drug tests shown during . Reported potential concerns for [facility] to keep an eye out on: maternal mental health/risk for and in light of MOB not currently taking prescribed mental health medications; reported that mob has a temporary option for sleep space for the baby but that this staff writer is making a cribs for kids referral. MOB is also limited on bottles. [facility] will continue to follow this family. Reported positives in that MOB is caring for baby, is willing to have referrals for early head start and cribs for kids referral. Met with MOB in room. MOB signed referral to Early Head Start. MOB verbally agrees to [facility] referral should Early Head start not be able to come out to MOB's home due to living in [place]. MOB confirms agreement for high school social studies tutor to make a cribs for kids referral and verbally states agreement to allow high school social studies tutor to email referral form. Spoke with nurse and per a few bottles were given to MOB for MOB to pump with. MOB reports to have a WIC appointment for Monday and can buy a can of formula tomorrow. Spoke with primary RN caring for MOB about sending some formula home with MOB, to get through until tomorrow when can buy formula if needed. MOB still planning to pump and give breast milk but desires formula until milk comes in. MOB reports she let the father of baby (FOB) know of . MOB's father has agreed to hold a visit at MOB's father's home. MOB reports to feel safe with this plan. Encouraged MOB to follow up with mental health center for self. MOB agrees but reports wants to have children appointments addressed first. Plan: MOB and baby to home. [facility] will be following. [facility] Kids referral being made. Early Head start [facility] referrals being made. MOB has WIC, J[facility], and [facility] in place already. No other services requested or indicated. -HOMERO Gibbons, BOX OFFICE ATTENDANT
--- NOTE | 2019-10-17 13:00 | PCM.DCVAG ---
Discharge Diet: No Restrictions Discharge Activity: No Restrictions, May Shower May resume sexual activity in: 6 weeks Weight Bearing Status: Weight bearing as tolerated Additional Instructions: If you experience any of the following, contact your healthcare provider. Bleeding that soaks a pad every hour for 2 hours Fever 100.4 or higher Unrelieved incision or abdominal pain Swelling, redness, discharge or bleeding from your incision or episiotomy site Your incision begins to separate Problems urinating (including inability to urinate or burning while urinating). Visual changes Severe headache Flu-like symptoms Pain or redness in one of both of your breasts Pain, warmth, tenderness or swelling in your legs, especially the calf area Frequent nausea and vomiting Symptoms of depression or anxiety If you experience any of the following, call 911 or go to the nearest Emergency Room. Chest pain Problems breathing Seizure activity Partial or complete paralysis of a body part, slurred speech, weakness or drooping of the face, or a sudden inability to walk or hold your balance Allergies/Adverse Reactions: Allergies No Known Allergies Allergy (Verified 10/15/19 07:28) Medications to take at Discharge Acetaminophen [Tylenol] 1,000 mg PO Q8H PRN PRN #60 tab 10/17/19 Naproxen [Naprosyn] 500 mg PO Q8H PRN PRN #60 tab 10/17/19 The following prescriptions were given: Naproxen [Naprosyn] 500 mg PO Q8H PRN PRN #60 tab PRN Reason: Pain Score 1-3/10 Transmission Status: Pending to [address] Acetaminophen [Tylenol] 1,000 mg PO Q8H PRN PRN #60 tab PRN Reason: Pain Score 1-3/10 Transmission Status: Pending to [facility] [facility]. Primary Care Physician: Matti Burr DO [Primary Care Provider] - Test Results: Test results from this visit will be discussed in further detail at your follow-up appointment, if applicable.
--- NOTE | 2019-10-18 09:50 | CASEMGMT ---
Social Work Labor and Delivery Unit Verified with Carmita Can at [facility] that Early Head Start program can service [facility]. Faxed referral form, signed by mother of baby to confirmed fax number. Emailed via secure email cribs for kids referral form to Carin Kelly at [facility]. No other services requested or indicated. Refer to previous social work documentation for details of interactions. -HOMERO Gibbons, MATH AND SCIENCE INSTRUCTOR
== END 2019-10-17 14:05 | disposition home or self-care (01) | DRG 560 ==
PROVIDERS: Admitting Provider Obstetrics & Gynecology; Family Provider Preventive Medicine Occupational Medicine; PCP Preventive Medicine Occupational Medicine; Visit Provider Obstetrics & Gynecology
DX: O36.8130 Decreased fetal movements, third trimester, not applicable or unspecified (principal); O69.81X0 Labor and delivery complicated by cord around neck, without compression, not applicable or unspecified; O99.214 Obesity complicating childbirth; O99.334 Smoking (tobacco) complicating childbirth; F17.200 Nicotine dependence, unspecified, uncomplicated; Z3A.38 38 weeks gestation of pregnancy; Z37.0 Single live birth
CPT/HCPCS: 59025; 59050; 85025; 86850; 86900; 86901; 99218; J7120; G0378

== ENCOUNTER 2019-11-21 07:31 | Day surgery (SDC) | payer MEDICAID, SELFPAY ==
--- NOTE | 2019-11-20 11:54 | PCM.HP.BLA ---
History and Physical Date of Admission: 11/21/19 HPI: The patient is a 29 year old female presenting for pre-operative visit. She is scheduled for?laparoscopic bilateral salpingectomy, for?sterilization on?11/21/19. ??Procedure discussed along with risks, benefits and complications. ?Other alternatives discussed for management. Consent form signed??Yes.? PAST MEDICAL HISTORY PAST MEDICAL HISTORY Diagnosis Date ? ADD (attention deficit disorder) ? ? Anemia ? ? ASCUS with positive high risk HPV cervical ? ? Bipolar depression (HCC) ? ? Cervical high risk HPV (human papillomavirus) test positive ? ? ABIEL III (cervical intraepithelial neoplasia grade III) with severe dysplasia 06/2018 ? Herpes simplex virus (HSV) infection ? ? HGSIL on Pap smear of cervix ? ? x3 ? History of pre-eclampsia in prior , currently ? ? MVP (mitral valve prolapse) ? ? Nexplanon insertion 05/31/2018 ? depression ? ? ? PAST SURGICAL HISTORY PAST SURGICAL HISTORY Procedure Laterality Date ? COLPOSCOPY W BX CERVIX ? ? ? x3 ? HSG ? 2013 ? L'SCOPE DX W/WO BRUSHINGS/WASHINGS ? 2013 ? OFFICE LEEP ? 07/02/2018 ? ? CURRENT MEDICATIONS Current Outpatient Medications Medication Sig Dispense Refill ? acetaminophen 325 mg-caffeine 40 mg-butalbital 50 mg (FIORICET) per tablet Take 1 tablet by mouth every 4 hours as needed. 20 tablet 0 ? metoclopramide HCl (REGLAN) 5 mg tablet Take 1 tablet by mouth four times daily. 20 tablet 0 ? polyethylene glycol 3350 (MIRALAX, GLYCOLAX) 17 gram/dose powder Take 17 g by mouth once daily. 1 Bottle 1 ? Omeprazole Magnesium (PRILOSEC OTC) 20 mg tablet Take 1 tablet by mouth once daily. 30 tablet 1 ? ferrous sulfate (IRON) 325 mg (65 mg iron) tablet Take 1 tablet by mouth twice daily. 30 tablet 5 ? [id number]-[id number] oil ( GUMMY) 400 mcg-35 mg -25 mg-5 mg chew Take 1 Dose by mouth once daily. 30 tablet 12 ? No current facility-administered medications for this visit.? ? ALLERGIES:?Patient has no known allergies. ? PERSONAL HISTORY:? SOCIAL HISTORY Social History ? Tobacco Use ? Smoking status: Current Every Day Smoker ? ? Packs/day: 0.50 ? ? Years: 10.00 ? ? Pack years: 5.00 ? Smokeless tobacco: Never Used Substance Use Topics ? Alcohol use: Not Currently ? ? Comment: occ ? Drug use: Yes ? ? Types: Marijuana ? ? Comment: no marijuana 1 year ? FAMILY HISTORY:? FAMILY HISTORY FAMILY HISTORY Problem Relation Age of Onset ? other (dysplasia) Mother ?cervix- hysterectomy ? Cancer Paternal Grandmother ? ? REVIEW OF SYMPTOMS: GENERAL: denies fevers or chills ENDOCRINOLOGY: has not been on steroids Cardiology : denies palpitations or chest pain Respiratory: denies SOB or cough Hematology: denies history of prolonged bleeding or easy bruising or VTE Allergy: Denies history of personal or family history of allergy to anesthesia ? ? PHYSICAL EXAMINATION: ? VITALS:?unknown if currently . ? GENERAL:??The patient is well nourished, well hydrated in no acute distress. ?, The patient is oriented to time, place, and person. NECK:?Supple. No lynphadenopathy, normal thyroid, no thyromegaly. LUNGS:?Clear to auscultation bilaterally. no wheezes, rhonchi or rales HEART:?Regular rate and rhythm, Normal heart sounds and No murmurs or gallops ? IMPRESSION:?sterilization request ? ? PLAN:???The risks/benefits/alternatives and personal involved for the planned?laparscopic bilateral salpingectomy?were reviewed with the patient. Her questions were answered to her satisfaction and she desires to proceed. ?Consent was signed. ?I reviewed with her postop instructions and expectations. ? ? I have reviewed and updated past medical and surgical history, medications and allergies?
[2019-11-21] VITALS (8 sets, daily range): BP systolic 102–126; BP diastolic 71–78; PULSE 10–95; RESP 16–20; TEMP 36.2–36.7; O2SAT 93–100; BMI 32.8
[2019-11-21 07:54] LABS: Internal QC Validated? YES +Cl - CLEAR BKGD; Pregnancy, Urine Negative Negative
[2019-11-21 08:09] LABS: Hematocrit 36.7 % (37-47); Mean Corp Hgb Conc 35.4 g/dL (32-36); Mean Corpuscular Hgb 34.9 pg (27.0-32.0); Mean Corpuscular Volume 98.4 fL (81-99); Mean Platelet Vol. 8.5 fl (6.2-12.0); Platelet Count 281 K/mm3 (150-450); RBC Distribution Width CV 11.9 % (11.6-14.6); RBC Distribution Width SD 43.3 fl (35.1-43.9); Red Blood Count 3.73 M/mm3 (4.2-5.4); White Blood Count 10.2 K/mm3 (4.4-11.0)
[2019-11-21] MEDS: Acetaminophen 500 MG Tablet 1000 MG PO (08:14)
[2019-11-21] MEDS: Gabapentin 400 MG Capsule PO (08:15)
[2019-11-21] MEDS: Celecoxib 200 MG Capsule 400 MG PO (08:15)
[2019-11-21] MEDS: Lactated Ringers 1,000 ML 100 ML IV (08:31)
--- NOTE | 2019-11-21 09:00 | FALS_PTH ---
PATIENT: TOM KUO [place] [facility] [place][id number] AGE/SX: 29/F ROOM: RE11/21/[address]: Dr. Mallory Del Rio MD : 1990 BED: DIS: 11/21/2019 SPEC #: [id number] RECD: 11/21/19 11:32 STATUS: MASSIEL HAMZAH #: [id number] SRINIVASAN: 11/21/19 09:[address]: Mallory Del Rio DEPT: SURGICAL PATHOLOGY RECD BY: Anuel Manuel ENTERED: 11/21/19 13:45 SP TYPE: FALL TUBES OTHR DR: Dr. Matti Burr, Tissues: Fallopian tube Procedures: Surgery Specimen Level II Surgery Specimen Level IV HEADER OPERATION: Laparoscopic salpingectomy PRE-OP DIAGNOSIS: Desired sterilization TISSUE SUBMITTED: Bilateral fallopian tubes MICROSCOPIC DIAGNOSIS Right and left fallopian tubes, bilateral salpingectomies: Complete cross-sections of fallopian tubes. Benign paratubal cyst. AM:yaniv 11/22/19 MICROSCOPIC DESCRIPTION Slides are reviewed. GROSS DESCRIPTION Received is one container labeled with the patient's name and designated bilateral fallopian tubes. The specimen consists of two fallopian tubes with an average length of 4.5 cm and has an average diameter of 0.5 cm. Both fallopian tubes have normal fimbriated ends. No mass lesions are identified. [employer] Professional sections are submitted in two cassettes as follows: 1 - one fallopian tube, 2 - the other fallopian tube. / AM:yaniv 11/21/19 TC:5 CPT: 48950 x2, 95644
[2019-11-21] MEDS: Bupivacaine Mpf 0.5% 30 ML VIAL (09:20)
--- NOTE | 2019-11-21 09:22 | PCM.DC.TUB ---
Discharge Diet: No Restrictions - Increase fluid intake for the next 48 hours. Discharge Activity: Return to Normal Activity, May Drive - when you are no longer taking pain/narcotic meds., May Shower, May Take a Tub Bath - in 7 days Additional Activity Instructions:: Ambulate often the next week after surgery. Nothing in the vagina for 5 days. Call your doctor if your incision/area has: Continuous Slow Oozing, Sudden Increased Bleeding, Increased Pain/ Swelling, Increased Redness, Foul Smelling Discharge Call your doctor if you observe: Fever of 101 or Higher Cleanse incision/area with: Soap & Water, - - Your incisions have skin glue. It can get wet. Leave it on for 10 to 14 days. Allergies/Adverse Reactions: Allergies No Known Allergies Allergy (Verified 11/21/19 07:55) Medications to take at Discharge Acetaminophen [Tylenol] 1,000 mg PO Q8H PRN PRN #60 tab 10/17/19 Naproxen [Naprosyn] 500 mg PO Q8H PRN PRN #20 tab 11/21/19 Oxycodone [Oxyir] 5 mg PO Q6H PRN PRN 5 Days #15 tablet 11/21/19 The following prescriptions were given: Naproxen [Naprosyn] 500 mg PO Q8H PRN PRN #20 tab PRN Reason: Pain Score 1-3/10 Transmission Status: Pending to [address] Oxycodone [Oxyir] 5 mg PO Q6H PRN PRN 5 Days #15 tablet PRN Reason: severe pain Transmission Status: Sent to [facility] Primary Care Physician: Matti Burr DO [Primary Care Provider] - Test Results: Test results from this visit will be discussed in further detail at your follow-up appointment, if applicable. Please Follow Up With: Mallory Del Rio MD - [phone] When: 2-4 weeks or as needed
--- NOTE | 2019-11-21 09:50 | PCM.OPRPT ---
Report of Operation Date of Procedure: 11/21/19 Pre-Operative Diagnosis: Sterilization request Post-Operative Diagnosis: Same Surgery/Procedure Performed:: Laparoscopic bilateral salpingectomy Description of Surgical Findings:: Normal-appearing retroverted uterus, normal-appearing tubes and ovaries boring and filling machine operator: Laya nair Type of Anesthesia:: General Anesthesiologist: Yocasta Neal Special Medications: none Specimen's removed: bilateral fallopian tubes Drains: none Estimated Blood Loss (mL): 5 Fluids Replaced: 800 cc Description of Procedure: The patient was taken to the operating room where she was prepped and draped in the dorsolithotomy position. A weighted speculum was placed in the vagina and the anterior lip of the cervix was grasped with a tenaculum. The Clair uterine manipulator was placed and the remainder of the instruments were removed from the vagina. Attention was turned to the abdomen. All port sites were infiltrated with 0.5% Marcaine before skin incisions were made. A 5 mm [intraumbilical] incision was made. The anterior abdominal wall was tented up with 2 towel clamps while a 5 mm blade less trocar and sleeve were [directly inserted]. Intraperitoneal placement was confirmed with the laparoscope. The pneumoperitoneum was created and the underlying abdominal contents were intact. The patient was placed in Trendelenburg. Right and left lower quadrant ports were placed under direct visualization lateral to the inferior epigastric vessels. The bowel was swept away and the above findings were noted. The LigaSure device was used to clamp seal and transect the antimesenteric portions of the right tube to the cornual insertion of the uterus. The tube was amputated from the uterus and the pedicles were all confirmed to be hemostatic. The same procedure was performed on the contralateral side. The specimens were brought out through a 5 mm port. The pedicles were again examined and found to be hemostatic. The lateral ports were removed under direct visualization and no active bleeding was noted. The pneumoperitoneum was released. The skin incisions were closed with Monocryl suture in a subcuticular fashion and skin glue. The vaginal instruments were removed and the vaginal sweep was completed by me. The procedure was performed by me with assistance. All sponge and needle counts were correct and the patient was taken to the recovery room in stable condition. Grafts/Implants Used: none - Complications none - Admit VTE Documentation VTE Present on Admission: No VTE Mechan Device Prophylaxis: SCD's VTE Pharm Prophylaxis ordered?: No Reason prophylaxis not ordered:: Procedure Not Indicated
== END 2019-11-21 11:44 | disposition home or self-care (01) ==
LOC: SDC 07:33 → AC 07:35
PROVIDERS: Anesthesiology; Family Provider Preventive Medicine Occupational Medicine; PCP Preventive Medicine Occupational Medicine; Referring Provider Obstetrics & Gynecology; Visit Provider Obstetrics & Gynecology
PROC: (CPT 58661; principal; 2019-11-21 08:45)
DX: Z30.2 Encounter for sterilization (principal); N83.8 Other noninflammatory disorders of ovary, fallopian tube and broad ligament; D64.9 Anemia, unspecified; K58.9 Irritable bowel syndrome, unspecified; F17.200 Nicotine dependence, unspecified, uncomplicated; F12.90 Cannabis use, unspecified, uncomplicated
CPT/HCPCS: 58661; 81025; 85027; 88302; 88305; J7120; J2405

== ENCOUNTER 2020-04-24 07:43 | Emergency (ER) | payer MEDICAID, SELFPAY ==
[2019-11-21 07:58] VITALS: BMI 32.8
[2020-04-24 07:45] VITALS: BP 127/84; PULSE 109; RESP 17; TEMP 36.6; O2SAT 98; BMI 37.3
--- NOTE | 2020-04-24 08:05 | CT_ITS ---
STUDY: CT ABDOMEN AND PELVIS WITHOUT CONTRAST REASON FOR EXAM: Female, 30 years old. BILAT FLANK PAIN X 1 WEEK RADIATION DOSAGE (If Supplied By Facility): CTDIvol = ( 17.01 ) mGy, DLP = ( 807.55 ) mGycm TECHNIQUE: Transaxial images were obtained from the dome of the diaphragm to the symphysis pubis without oral contrast, and without intravenous contrast. Sagittal and coronal images were reconstructed. Individualized dose optimization techniques were used for this CT. COMPARISON: None. FINDINGS: Minimal degree of increased markings at the right lung base suggestive of atelectasis The visualized portions of the heart are within normal limits. Normal liver. Normal gallbladder and extrahepatic biliary system. Normal spleen. Normal pancreas. Normal bilateral adrenal glands. Normal right kidney. Normal left kidney. Normal visualized stomach. Normal small intestine. Normal colon. The appendix is visualized and appears normal. Normal abdominal aorta. Normal inferior vena cava. There is borderline retroperitoneal lymphadenopathy with enlarged nodes no greater than 10mm in the short axis diameter. Normal urinary bladder. There is a 2.9 cm x 3.2 cm cyst in the right ovary. Normal abdominal wall. Normal osseous structures. CT/Abdomen/Pelvis without Cont IMPRESSION: Mild degree of the right basilar atelectasis. 2.9 cm x 3.2 cm cyst in the right ovary. Electronically Signed: Oscar Lopez, at 9:19 EDT , Service support ,
--- NOTE | 2020-04-24 08:06 | ED.VIS.GEN ---
History of Present Illness Chief Complaint: Flank Pain Informant: Patient Onset: Weeks - 1 week Context: Gradual Onset Current Severity: Moderate Maximum Severity: Moderate Narrative: Patient presents with urinary symptoms bilateral flank pain for the past week. She states when she gets the symptoms she will usually drink cranberry juice and take Pyridium. She states this time her symptoms have not resolved. She continues to have flank pain, right greater than left. She has pain at the end of her urinary stream. She did have a baby 6 months ago. She had her tubes tied on November 21 but has not yet had a regular menstrual cycle. She states that she is currently passing small amounts of dark blood, but not typical of her periods. - Past Medical History (1) Anxiety and depression Status: Chronic Past Medical History - Allergies and Home Meds Allergies/Adverse Reactions: Allergies No Known Allergies Allergy (Verified 04/24/20 07:44) Primary Care Physician: Mallory Del Rio MD [STAFF PHYSICIAN] - 1-2 Weeks Prior records reviewed: Yes Lives: With Family Smoking Status: Current every day smoker Review of Systems General: Denies: Chills, Fever Eyes: Denies: Visual changes - bilaterally ENT: Denies: Bilateral ear pain Cardiovascular: Denies: Chest pain Respiratory: Denies: Dyspnea, Cough Gastrointestinal: Reports: Abdominal pain. Denies: Vomiting, Diarrhea, Constipation Genitourinary: Reports: Dysuria Musculoskeletal: Reports: Back pain. Denies: Swelling, Extremity Pain Neurological: Denies: Headache Hematologic: Denies: Easy bruising, Easy bleeding Allergy: Denies: Uticaria Physical Exam Vital Signs/Narrative: Vital Signs Temp Pulse Resp BP Pulse Ox 04/24/20 07:45 97.9 F 109 H 17 127/84 H 98 Inital Vital Signs reviewed: Yes General: Well nourished, Well developed Head: Normocephalic ENT: Moist mucous membranes Neck: Supple Cardiovascular: Regular rate, Regular rhythm Respiratory: No distress, CTA bilaterally Abdomen: Soft, Tender - Lower abdominal tenderness.. Negative for: Guarding, Rebound tenderness Back: - - No true CVA tenderness. She does have tenderness in the bilateral paraspinal lumbar muscles. Skin: Normal color Neurological: Alert, Oriented x3, Normal Strength, Normal Sensation Psychological: Normal affect Diagnostic/Tx/Re-eval Impressions Abdomen/Pelvis CT 04/24/20 08:05 IMPRESSION: Mild degree of the right basilar atelectasis. 2.9 cm x 3.2 cm cyst in the right ovary. Electronically Signed: Oscra Lopez, at 9:19 EDT , Service support , 04/24/20 08:05 Abdomen/Pelvis without Cont [CT] Stat Laboratory Results 04/24/20 04/24/20 04/24/20 07:55 08:20 08:20 WBC 12.7 H RBC 3.85 L Hgb 13.3 Hct 38.7 MCV 100.5 H MCH 34.5 H MCHC 34.4 RDW Std Deviation 45.9 H RDW Coeff of Ioana 12.4 Plt Count 339 MPV 8.5 Immature Gran % (Auto) 0.600 Neut % (Auto) 78.3 H Lymph % (Auto) 14.1 L [place] % (Auto) 5.1 Eos % (Auto) 1.5 Baso % (Auto) 0.4 Absolute Neuts (auto) 9.9 H Absolute Lymphs (auto) 1.79 Nucleated RBC % 0 Sodium 139 Potassium 3.5 Chloride 107 Carbon Dioxide 26.0 Anion Gap 6 BUN 6 L Creatinine 0.77 Estim Creat Clear Calc 89.18 Est GFR (MDRD) Af Amer 114 Est GFR (MDRD) Non-Af 94 BUN/Creatinine Ratio 7.8 L Glucose 110 H Calcium 8.7 Serum , Qual Urine Color Yellow Urine Clarity Clear Urine pH 6.0 Ur Specific [place] 1.015 Urine Protein 15 H Urine Glucose (UA) Normal Urine Ketones Negative Urine Occult Blood 150 H Urine Nitrite Positive H Urine Bilirubin Negative Urine Urobilinogen Normal Ur Leukocyte Esterase 500 H Urine RBC 10-25 SEEN Urine WBC 50-100 SEEN Ur Squamous Epith Cells 0-5 SEEN Urine Bacteria 2+ Urine Mucus 0 SEEN 04/24/20 08:20 WBC RBC Hgb Hct MCV MCH MCHC RDW Std Deviation RDW Coeff of Ioana Plt Count MPV Immature Gran % (Auto) Neut % (Auto) Lymph % (Auto) [place] % (Auto) Eos % (Auto) Baso % (Auto) Absolute Neuts (auto) Absolute Lymphs (auto) Nucleated RBC % Sodium Potassium Chloride Carbon Dioxide Anion Gap BUN Creatinine Estim Creat Clear Calc Est GFR (MDRD) Af Amer Est GFR (MDRD) Non-Af BUN/Creatinine Ratio Glucose Calcium Serum , Qual NEGATIVE Urine Color Urine Clarity Urine pH Ur Specific [place] Urine Protein Urine Glucose (UA) Urine Ketones Urine Occult Blood Urine Nitrite Urine Bilirubin Urine Urobilinogen Ur Leukocyte Esterase Urine RBC Urine WBC Ur Squamous Epith Cells Urine Bacteria Urine Mucus - Medical Decision Making Patient was given Toradol and IV fluids. On repeat evaluation she is resting more comfortably. She was given a dose of Rocephin for her UTI. She be treated with 3 additional days of Bactrim. She does have evidence of a right-sided ovarian cyst as well. We discussed signs and symptoms of torsion and when to return. She will follow-up with her CHUCKING LATHE OPERATOR, Dr. Mallory Del Rio. ED Disposition - Plan for ED Patient: Disposition: Home or Assisted Living Diagnosis: Cystitis, Right ovarian cyst Instructions: ED Cyst Ovarian, ED CYSTITIS Female Adult Prescriptions: Smz/Tmp Ds [Bactrim Ds] 1 tab PO BID #6 tab Transmission Status: Pending to [address] Naproxen [Naprosyn] 500 mg PO BID PRN PRN #20 tab PRN Reason: Pain Score 4-10/10 Transmission Status: Pending to [address] Hydrocodone Bitart/Apap 5-325 [[place] 5MG-325MG] 1 tablet PO Q6H PRN PRN 3 Days #10 tablet PRN Reason: Pain Transmission Status: Sent to [facility] Referrals: Mallory Del Rio MD [STAFF PHYSICIAN] - 1-2 Weeks
[2020-04-24 08:14] LABS: Mucous, Urine 0 SEEN /hpf (<or=2+)
[2020-04-24 08:16] LABS: Color, Urine Yellow (Yellow); Glucose, Dipstick Normal (Normal); Ketone-Dipstick Negative (Negative); Leukocyte Esterase-Dipstick 500 /ul (Negative); Nitrite-Dipstick Positive (Negative); Occult Blood-Urine 150 /ul (Negative); Protein-Dipstick 15 mg/dl (Negative); Specific Gravity, Urine 1.015 (1.002-1.030); Urine Bilirubin Dipstick Negative (Negative); Urine Clarity Clear (Clear); Urine Urobilinogen Normal (Normal)
[2020-04-24] MEDS: 0.9% Normal Saline 1,000 ML 1000 ML IV (08:16)
[2020-04-24] MEDS: Ketorolac 30 MG/ML Syringe IV (08:17)
[2020-04-24 08:19] VITALS: BP 127/84; PULSE 109; RESP 17; TEMP 36.6; O2SAT 98
[2020-04-24 08:24] LABS: Bacteria 2+ /hpf (None Seen); Red Blood Cells-Urine 10-25 SEEN /hpf (0-5); Squamous Epithelial Cells - UA 0-5 SEEN /hpf (5-10); White Blood Cells 50-100 SEEN /hpf (0-5)
[2020-04-24 08:29] LABS: Absolute Lymphocyte Count 1.79 X10^3/uL (0.83-4.51); Absolute Neutrophil Count 9.9 X10^3/uL (2.0-7.7); Basophil# 0.05 X10^3/uL; Basophil% 0.4 % (0-1); Eosinophil# 0.19 X10^3/uL; Eosinophils% 1.5 % (0-5); Hematocrit 38.7 % (37-47); Hemoglobin 13.3 g/dL (12.0-15.0); Lymphocyte # 1.79 X10^3/ul (4.0); Lymphocyte % 14.1 % (19-41); Mean Corp Hgb Conc 34.4 g/dL (32-36); Mean Corpuscular Hgb 34.5 pg (27.0-32.0); Mean Corpuscular Volume 100.5 fL (81-99); Mean Platelet Vol. 8.5 fl (6.2-12.0); Monocyte# 0.65 X10^3/uL; Monocyte% 5.1 % (0-10); NRBC Flagged by Analyzer 0 % (0-5); Neutrophil # 9.92 X10^3/uL (2.7-7.7); Neutrophil % 78.3 % (47-70); Platelet Count 339 K/mm3 (150-450); RBC Distribution Width CV 12.4 % (11.6-14.6); RBC Distribution Width SD 45.9 fl (35.1-43.9); Red Blood Count 3.85 M/mm3 (4.2-5.4); White Blood Count 12.7 K/mm3 (4.4-11.0)
[2020-04-24 08:36] LABS: Internal QC Validated? YES +Cl - CLEAR BKGD; Pregnancy, Serum, hCG Quali. NEGATIVE Negative
[2020-04-24 08:41] LABS: Anion Gap 6 (5-15); BUN 6 mg/dL (7-18); BUN/Creat Ratio 7.8 RATIO (10-20); Calcium,Total 8.7 mg/dL (8.5-10.1); Chloride 107 mmol/L (98-107); Creatinine, Serum 0.77 mg/dL (0.55-1.02); EST Glomerular Filtration Rate 94 mL/min (>60); Est Glom Filt Rate - Afr Amer 114 mL/min (>60); Estimated Creatinine Clearance 89.18 ml/min; Glucose 110 mg/dL (74-106); Potassium 3.5 mmol/L (3.5-5.1); Sodium Level 139 mmol/L (136-145)
[2020-04-24] MEDS: Ceftriaxone 1 GM/50 ML BAG IV (08:56)
== END 2020-04-24 09:52 | disposition home or self-care (01) ==
PROVIDERS: Emergency Provider Emergency Medicine; PCP Preventive Medicine Occupational Medicine
DX: N30.90 Cystitis, unspecified without hematuria (principal); N83.201 Unspecified ovarian cyst, right side; F17.200 Nicotine dependence, unspecified, uncomplicated
CPT/HCPCS: 74176; 80048; 81001; 84703; 85025; 96365; 96375; 99284; J7030

== ENCOUNTER 2021-04-02 11:06 | Emergency (ER) | payer MEDICAID, SELFPAY ==
[2021-04-02 11:07] VITALS: BP 130/72; PULSE 123; RESP 15; TEMP 36.3; O2SAT 97; BMI 38.9
--- NOTE | 2021-04-02 11:23 | EX.ED.DYSGE1 ---
HPI History of Present Illness Chief Complaint: Lower Extremity Injury Informant: patient Narrative Narrative: 31-year-old female presenting with left ankle pain. Patient states she was hiking yesterday and twisted her left ankle. She has tried Tylenol at home. She has tried icing and elevating. She has swelling and painful ambulation. She denies other injuries. Prior similar symptoms: Yes Recent Illness/Hospitalization: No PFSH PFSH Home Medications naproxen 500 mg PO BID PRN PRN #20 tab 04/24/20 [Rx Last Taken Unknown] sulfamethoxazole-trimethoprim 1 tab PO BID #6 tab 04/24/20 [Rx Last Taken Unknown] Allergy/AdvReac Type Severity Reaction Status Date / Time No Known Allergies Allergy Verified 04/02/21 11:09 Social History Smoking Status: Current every day smoker ROS ROS ED Constitutional Constitutional ED: Denies fever(s) ENT ENT ED: Denies rhinorrhea or sore throat Cardiovascular Cardiovascular: Denies chest pain Respiratory/Chest Respiratory/Chest: Denies cough or dyspnea Gastrointestinal Gastrointestinal: Denies nausea or vomiting Musculoskeletal Musculoskeletal: Reports other Details: left ankle pain Integumentary Denies rash Neurologic Neurologic: Denies headache(s) EXAM Physical Exam Const Vital Signs: 04/02/21 11:07 Temperature 97.3 F L Temperature Source Temporal Pulse Rate 123 H Respiratory Rate 15 Blood Pressure 130/72 H Blood Pressure Mean 91 Pulse Ox 97 Oxygen Delivery Method Room Air Positive well nourished and well developed General Appearance ED: well developed HEENT Reports normocephalic and head/scalp atraumatic Eyes PERRL and EOMs intact bilaterally Neck supple General: Negative for tenderness Chest Wall inspection of chest normal Resp normal respiratory effort and clear to auscultation bilaterally Cardio regular rate and regular rhythm no CVA tenderness Extremity Extremity Narrative: Left lateral ankle swelling and tenderness. No fifth metatarsal tenderness. No Achilles tendon tenderness. No proximal fibula tenderness. Normal pulses. Neuro oriented x3 Sensorium / Orientation: alert Psych mental status grossly normal MDM MDM MDM Narrative Medical decision making narrative: Ice pack was applied. Left ankle x-ray read by myself and radiology shows no fracture. Patient was given an Aircast. She is advised to ice and elevate. Advised to follow up with primary care physician. Advised return to ED if worsening complaints. Radiography Diagnostic Testing: Radiology Impression Ankle X-Ray 04/02/21 11:30 IMPRESSION: Soft tissue swelling. No demonstrated fracture. Electronically Signed: Enoch Cardona MD at 11:59 EDT Tel , Service support , Discharge Plan Triage Chief Complaint: Lower Extremity Injury ED Provider: Cailin Hunter Dx/Rx/DC Orders Clinical Impression: Left ankle sprain Instructions: ED Ankle Sprain (Adult) Prescriptions: No Action naproxen 500 MG tablet 500 mg PO BID PRN PRN (Reason: Pain Score 4-10/10) Qty: 20 RF: 0 sulfamethoxazole-trimethoprim 1 TABLET tablet 1 tab PO BID Qty: 6 RF: 0 Primary Care Provider: Matti Burr Referrals: Matti Burr DO [Primary Care Provider] - Disposition Disposition: Home, self care
--- NOTE | 2021-04-02 11:30 | RAD_ITS ---
STUDY: X-RAY - LEFT ANKLE REASON FOR EXAM: Left ankle injury from a fall. TECHNIQUE: 3 view(s) of the ankle. COMPARISON: Radiographs 07/16/2018. FINDINGS: Normal visualized distal tibia and fibula. Normal medial and lateral malleoli. Normal tibiotalar articulation and ankle mortise. Normal visualized talus and calcaneus. The visualized subtalar, talonavicular, calcaneocuboid and tarsal articulations are normal. There is soft tissue swelling overlying the lateral malleolus. RAD/Ankle min 3 Views IMPRESSION: Soft tissue swelling. No demonstrated fracture. Electronically Signed: Enoch Cardona MD at 11:59 EDT Tel , Service support ,
[2021-04-02 13:19] VITALS: BP 130/70; PULSE 90; RESP 20; O2SAT 98
== END 2021-04-02 13:29 | disposition home or self-care (01) ==
PROVIDERS: Emergency Provider Emergency Medicine; PCP Preventive Medicine Occupational Medicine
DX: S93.402A Sprain of unspecified ligament of left ankle, initial encounter (principal); X50.1XXA Overexertion from prolonged static or awkward postures, initial encounter; Y93.01 Activity, walking, marching and hiking; Y92.9 Unspecified place or not applicable; Y99.8 Other external cause status; F17.200 Nicotine dependence, unspecified, uncomplicated
CPT/HCPCS: 73610; 99284

== ENCOUNTER 2021-05-20 11:56 | Day surgery (SDC) | payer MEDICAID, SELFPAY ==
--- NOTE | 2021-05-05 16:15 | HP.PCM_ITS ---
History and Physical Date of Admission: 05/20/21 HPI: The patient is a 31 year old female presenting for pre-operative visit. She is scheduled for Hysteroscopy D&C, with polypectomy for postcoital bleeding and endocervical polyp on 05/20/2021. Procedure discussed along with risks, benefits and complications. Other alternatives discussed for management. Consent form signed? Yes. ? ? PAST MEDICAL HISTORY PAST MEDICAL HISTORY Diagnosis Date ? ADD (attention deficit disorder) ? ? Anemia ? ? ASCUS with positive high risk HPV cervical ? ? Bipolar depression (HCC) ? ? Cervical high risk HPV (human papillomavirus) test positive ? ? ABIEL III (cervical intraepithelial neoplasia grade III) with severe dysplasia 06/2018 ? Herpes simplex virus (HSV) infection ? ? HGSIL on Pap smear of cervix ? ? x3 ? History of pre-eclampsia in prior , currently ? ? MVP (mitral valve prolapse) ? ? Nexplanon insertion 05/31/2018 ? depression ? ? ? PAST SURGICAL HISTORY PAST SURGICAL HISTORY Procedure Laterality Date ? COLPOSCOPY W BX CERVIX ? ? ? x3 ? HSG ? 2013 ? L'SCOPE DX W/WO BRUSHINGS/WASHINGS ? 2013 ? L'SCOPE REM ADNEX W/PART/TOT OOPH/SALP Bilateral 11/21/2019 ? bilateral salpingectomy, sterilization ? OFFICE LEEP ? 07/02/2018 ? ? ? CURRENT MEDICATIONS Current Outpatient Medications Medication Sig Dispense Refill ? NYAMYC powder apply to affected area three times a day for 14 days ? ? ? clotrimazole (LOTRIMIN, CLOTRIM) 1 % cream Apply to affected area twice da lou[place]. 60 g 0 ? lisdexamfetamine (VYVANSE) 60 mg capsule ? No current facility-administered medications for this visit. ? ? ALLERGIES: Patient has no known allergies. ? PERSONAL HISTORY: SOCIAL HISTORY Social History ? Tobacco Use ? Smoking status: Current Every Day Smoker ? ? Packs/day: 0.50 ? ? Years: 10.00 ? ? Pack years: 5.00 ? Smokeless tobacco: Never Used Vaping Use ? Vaping Use: Never used Substance Use Topics ? Alcohol use: Yes ? ? Comment: Occasionally ? Drug use: Not Currently ? ? Types: Marijuana ? FAMILY HISTORY: FAMILY HISTORY FAMILY HISTORY Problem Relation Age of Onset ? other (dysplasia) Mother ? ? cervix- hysterectomy ? Skin Cancer Father ? ? No Known Problems Sister ? ? No Known Problems Sister ? ? No Known Problems Sister ? ? No Known Problems Sister ? ? No Known Problems Brother ? ? No Known Problems Maternal Grandmother ? ? Cancer Paternal Grandmother ? ? ? REVIEW OF SYMPTOMS: GENERAL: denies fevers or chills ENDOCRINOLOGY: has not been on steroids Cardiology : denies palpitations or chest pain Respiratory: denies SOB or cough Hematology: denies history of prolonged bleeding or easy bruising or VTE Allergy: Denies history of personal or family history of allergy to anesthesia ? PHYSICAL EXAMINATION: ? VITALS: Blood pressure 110/74, weight 210 lb 9.6 oz (95.5 kg), last menstrual period 04/23/2021, currently . ? GENERAL: The patient is well nourished, well hydrated in no acute distress. , The patient is oriented to time, place, and person. NECK: Supple. No lynphadenopathy, normal thyroid, no thyromegaly. LUNGS: Clear to auscultation bilaterally. no wheezes, rhonchi or rales HEART: Regular rate and rhythm, Normal heart sounds and No murmurs or gallops ? ? IMPRESSION: Postcoital bleeding, endocervical polyp ? PLAN: The risks/benefits/alternatives and personal involved for the planned hysteroscopy dilation and curettage with polyp resection were reviewed with the patient. Her questions were answered to her satisfaction and she desires to proceed. Consent was signed. I reviewed with her postop instructions and expectations. I have reviewed and updated past medical and surgical history, medications and allergies.This H&P was completed in my office on 04/30/2021.
[2021-05-19 17:29] LABS: Hematocrit 37.3 % (37-47); Hemoglobin 13.3 g/dL (12.0-15.0); Mean Corp Hgb Conc 35.7 g/dL (32-36); Mean Corpuscular Hgb 35.1 pg (27.0-32.0); Mean Corpuscular Volume 98.4 fL (81-99); Mean Platelet Vol. 9.4 fl (6.2-12.0); Platelet Count 374 K/mm3 (150-450); RBC Distribution Width CV 12.6 % (11.6-14.6); RBC Distribution Width SD 45.5 fl (35.1-43.9); Red Blood Count 3.79 M/mm3 (4.2-5.4); White Blood Count 10.1 K/mm3 (4.4-11.0)
[2021-05-20] VITALS (13 sets, daily range): BP systolic 108–119; BP diastolic 68–82; PULSE 74–95; RESP 16; TEMP 36.2–37.1; O2SAT 94–99; BMI 37.4
[2021-05-20 12:27] LABS: Internal QC Validated? YES +Cl - CLEAR BKGD; Pregnancy, Urine Negative Negative
[2021-05-20] MEDS: Celecoxib 200 MG Capsule 400 MG PO (12:38)
[2021-05-20] MEDS: Acetaminophen 500 MG Tablet 1000 MG PO (12:38)
[2021-05-20] MEDS: Lactated Ringers 1,000 ML 75 ML IV (12:39)
--- NOTE | 2021-05-20 13:30 | EMB_PTH ---
PATIENT: TOM KUO LOC: [facility] – [place] U#:[id number] AGE/SX: 31/F ROOM: RE05/20/[address]: Dr. Mallory Del Rio MD : 1990 BED: DIS: 05/20/2021 SPEC #: [id number] RECD: 05/21/21 06:58 STATUS: MASSIEL REQ #: [id number] SRINIVASAN: 05/20/21 13:[address]: Mallory Del Rio DEPT: SURGICAL PATHOLOGY RECD BY: Fifi Morgan ENTERED: 05/21/21 13:34 SP TYPE: ENDOM BX/C YOVANNY DR: Dr. Matti Burr DO Tissues: Endometrium, NOS Procedures: Surgery Specimen Level IV HEADER OPERATION: Hysteroscopy, D & C PRE-OP DIAGNOSIS: Abnormal uterine bleeding, endometrial polyps TISSUE SUBMITTED: Endometrial curettings MICROSCOPIC DIAGNOSIS Endometrial curettings: Proliferative endometrium with focal glandular breakdown. Focal minimal chronic endometritis. Fragments of benign endocervical mucosa with acute and chronic inflammation. SJ:yaniv 05/24/2021 COMMENT Case has been reviewed in consultation with Dr. Rocha who concurs with the above diagnosis. IDC:AM MICROSCOPIC DESCRIPTION Slides are reviewed. GROSS DESCRIPTION Received in fixative is one container labeled with the patient's name and designated endometrial curettings. The specimen consists of multiple irregular fragments of light christianson soft tissue that in aggregate measure 2.2 x 1 x 0.1 cm. The specimen is totally submitted in one cassette. / AM:yaniv 05/21/21 TC:3 CPT: 23814
--- NOTE | 2021-05-20 14:44 | PCM.DC ---
Discharge Instructions Diet Discharge Diet: No restrictions Activity May resume sexual activity in: 2 weeks Lifting Restrictions: none Dressing / Incision Call your doctor if your incision/area has: Sudden Increased Bleeding and Foul Smelling Discharge Call your doctor if you observe: Fever of 101 or Higher and Using more than 1 pad per hour (for 2 hrs in a row) Follow Up Care Please Follow Up With: Mallory Del Rio MD When: 2-4 weeks or as needed. Call [phone] to make an appointment or with any concerns. Test Results: Test results from this visit will be discussed in further detail at your follow-up appointment, if applicable. Discharge Plan Admission Primary Reason for Your Visit: D&C for uterine polyps Attending Provider: Mallory Del Rio Primary Care Provider: Matti Burr Discharge Orders/Prescriptions Prescriptions: New ibuprofen [ibuprofen] 600 MG tablet 600 mg PO Q6H PRN (Reason: Pain) 10 Days Qty: 20 RF: 1 Continued Vyvanse 60 mg capsule 60 mg PO DAILY RF: 0 Referrals / Follow Up: Matti Burr DO [Primary Care Provider] - Disposition Disposition (needs filled in before D/C Order can be placed): Home, Self Care
--- NOTE | 2021-05-20 14:46 | OP.PCM_ITS ---
Problems Associated Problem List Diagnoses (1) Abnormal uterine bleeding: (2) Endometrium, polyp: Report of Operation Date of Procedure: 05/20/21 Pre-Operative Diagnosis: abnormal uterine bleeding, endometrial polyps Post-Operative Diagnosis: same Surgeon: Mallory Del Rio keyboard operator: none Type of Anesthesia: MAC/Supplemental/Local Anesthesiologist: Anderson Thompson Special Medications: none Specimen's removed: endometrial curettings Drains: none Estimated Blood Loss (mL): 10 Fluids Replaced: 1000 cc Description of Procedure: The patient was taken to the OR where she was prepped and draped in dorsal lithotomy position. The weighted speculum was placed in the vagina and the anterior lip of the cervix was grasped with a single-tooth tenaculum. A paracervical block was administered with 1% lidocaine with 1- 100,000 epinephrine solution. The cervix was dilated serially with Hegar dilators. The Symphion hysteroscope was placed into the uterine cavity and the above findings were noted. Bilateral tubal ostia were identified. The hysteroscope was removed. A gentle sharp curettage was done of the uterine cavity. The instruments were removed from the vagina. The specimen was handed off and sent to pathology. All sponge and needle counts were correct. Vaginal sweep was performed by me. The patient was awakened and taken to the recovery room in stable condition. Hysteroscopic fluid deficit is 100 cc of normal saline Findings: Endometrial cavity: Normal, no fibroids or polyps noted Cervix: Normal Vagina: Normal Grafts/Implants Used: none Procedure Start Time: 14:49 Procedure Stop Time: 14:53 Complications none Admit VTE Documentation VTE Present on Admission: No VTE Mechan Device Prophylaxis: SCD's Reason prophylaxis not ordered:: Procedure Not Indicated
[2021-05-20] MEDS: Lidocaine 1%/Epi 1:200 (30ml) 30 ML AMPUL (14:51)
== END 2021-05-20 16:52 | disposition home or self-care (01) ==
LOC: SDC 11:56 → AC 11:57
PROVIDERS: PCP Preventive Medicine Occupational Medicine; Referring Provider Obstetrics & Gynecology; Visit Provider Obstetrics & Gynecology
PROC: 0UB98ZZ Excision of Uterus, Via Natural or Artificial Opening Endoscopic (ICD-10-PCS; CPT 58558; principal; 2021-05-20 13:15)
DX: N71.1 Chronic inflammatory disease of uterus (principal); N72 Inflammatory disease of cervix uteri; N93.0 Postcoital and contact bleeding; Z20.822 Contact with and (suspected) exposure to COVID-19; F31.9 Bipolar disorder, unspecified; F90.9 Attention-deficit hyperactivity disorder, unspecified type; F17.200 Nicotine dependence, unspecified, uncomplicated; Z79.899 Other long term (current) drug therapy; Z87.59 Personal history of other complications of pregnancy, childbirth and the puerperium; Z90.79 Acquired absence of other genital organ(s)
CPT/HCPCS: 58558; 36415; 81025; 85027; 87426; 88305; C9803; J7120; J2405

== ENCOUNTER 2021-07-17 16:14 | Emergency (ER) | payer MEDICAID, SELFPAY ==
[2021-07-17 16:15] VITALS: BP 133/97; PULSE 118; RESP 20; TEMP 36.4; O2SAT 97; BMI 35.4
[2021-07-17 16:16] VITALS: BP 133/97; PULSE 118; RESP 20; TEMP 36.4; O2SAT 97
--- NOTE | 2021-07-17 16:37 | EX.ED.DYSGE1 ---
HPI History of Present Illness Chief Complaint: Cough Narrative Narrative: Patient presenting with cough. She states that her son had been exposed to RSV and she has been exposed to COVID-19 as well as he had. She states she only has a cough. She does not have a fever or chills. She does not have body aches. She does not have shortness of breath or chest pain. She states she feels otherwise well. I did discuss with her that the triage note states he is having chest pressure and she adamantly denies this. She states she feels fine and just has a mild cough and has to clear her throat sometimes. She wants to be tested for COVID-19 and since she was exposed to RSV testing for that as well. [facility] Medical History ADD (attention deficit disorder) Alcohol use Back pain History of hysterosalpingogram (~2013) History of IBS Shortness of breath on exertion Smoker Home Medications Vyvanse 60 mg PO DAILY 05/13/21 [History Last Taken Unknown] Allergy/AdvReac Type Severity Reaction Status Date / Time No Known Allergies Allergy Verified 07/17/21 16:32 Surgical History Hx of bilateral salpingectomy (~11/21/19) Social History Smoking Status: Current every day smoker tobacco type: cigarettes ROS ROS ED Constitutional Constitutional ED: Denies chills, fever(s), sweats or weight loss Eyes Eyes: Denies blurry vision or diplopia ENT ENT ED: Denies rhinorrhea or sore throat Cardiovascular Cardiovascular: Denies chest pain or palpitations Respiratory/Chest Respiratory/Chest: Reports cough; Denies dyspnea, dyspnea on exertion or sputum Gastrointestinal Gastrointestinal: Denies abdominal pain, diarrhea, nausea or vomiting Genitourinary Genitourinary ED: Denies dysuria or hematuria Musculoskeletal Musculoskeletal: Denies arthralgias or myalgias Integumentary Denies abscess or rash Neurologic Neurologic: Denies headache(s) or paresthesias EXAM Physical Exam Const Vital Signs: 07/17/21 16:15 07/17/21 16:16 07/17/21 16:33 Temperature 97.6 F L 97.6 F L Temperature Source Temporal Temporal Pulse Rate 118 H 118 H Respiratory Rate 20 H 20 H Respiratory Effort Non-Labored Blood Pressure 133/97 H 133/97 H Blood Pressure Mean 109 109 Pulse Ox 97 97 Oxygen Delivery Method Room Air Room Air Positive well nourished General Appearance ED: NAD HEROSA MARIA Reports moist mucous membranes Negative for trauma Eyes PERRL and EOMs intact bilaterally Resp normal respiratory effort and clear to auscultation bilaterally Cardio regular rate Rate: tachycardic Neuro oriented x3 and CN's II-XII intact bilaterally Sensorium / Orientation: alert Psych mental status grossly normal MDM MDM MDM Narrative Medical decision making narrative: Patient presenting to be tested for COVID-19 and RSV. She states she feels otherwise well except for some mild cough. She denies any chest pain or shortness of breath. I did ask her about the triage note but states she had chest pain and she denies this adamantly. She does have a elevated heart rate however she is actively rocking her child who is coughing. After discussion she states she wants to be tested for COVID-19 and RSV and will wait at home for test results. She states she has a my chart. She is discharged home in stable condition. Impression: 1. Viral syndrome Discharge Plan Triage Chief Complaint: Cough ED Provider: Fortino Ordonez Dx/Rx/DC Orders Instructions: ED Viral Syndrome (Adult) Prescriptions: No Action Vyvanse 60 mg capsule 60 mg PO DAILY RF: 0 Primary Care Provider: Matti Burr Referrals: Matti Burr DO [Primary Care Provider] - Disposition Disposition: Home, Self Care
== END 2021-07-17 16:59 | disposition home or self-care (01) ==
LOC: ED 16:54
PROVIDERS: Emergency Provider Student in an Organized Health Care Education/Training Program; PCP Preventive Medicine Occupational Medicine
DX: B34.9 Viral infection, unspecified (principal); F17.210 Nicotine dependence, cigarettes, uncomplicated; Z79.899 Other long term (current) drug therapy
CPT/HCPCS: 87426; 87807; 99282

== ENCOUNTER 2022-05-18 04:47 | Emergency (ER) | payer MEDICAID, SELFPAY ==
[2022-05-18 04:48] VITALS: BP 128/71; PULSE 108; RESP 17; TEMP 38; O2SAT 95; BMI 31.1
--- NOTE | 2022-05-18 05:11 | EDS_ITS ---
HPI History of Present Illness Chief Complaint: Headache Informant: patient Narrative Narrative: Patient states she has a mild migraine. She states that 3 days ago she started to get a feeling like she had a mild cold. She had a little bit of a runny and congested nose. She had some very slight myalgias. She had some tiredness. She has a slight cough but states she smokes and is really not different than normal. She does not know of any exposures. She also stopped her Vyvanse at that time. Yesterday afternoon she started to get a headache. She states it is behind both eyes. It moves a little bit toward the back of her head. There is some mild photophobia. No nausea vomiting. No numbness tingling weakness. No neck pain or stiffness. She does not have symptoms of fevers or chills. She states she does occasionally get migraines. Her migraines are typically behind her eyes and will moved to the back of her head just like this. But her migraines are normally more severe. The most of her migraines occurred when she was in the past. She had her tubes tied 3 years ago and has no symptoms of . PFSH PFS Medical History ADD (attention deficit disorder) Alcohol use Back pain History of hysterosalpingogram (~2013) History of IBS Shortness of breath on exertion Smoker Home Medications lisdexamfetamine 60 mg capsule (Vyvanse) 60 mg PO DAILY 05/13/21 [History Last Taken Unknown] Allergy/AdvReac Type Severity Reaction Status Date / Time No Known Allergies Allergy Verified 05/18/22 04:51 Surgical History Hx of bilateral salpingectomy (~11/21/19) Social History Smoking Status: Current every day smoker tobacco type: cigarettes ROS ROS ED Constitutional Constitutional ED: Denies chills, fever(s) or subjective Eyes Eyes: Reports other Details: Mild photophobia. ; Denies blurry vision, change in vision or diplopia ENT ENT ED: Reports rhinorrhea; Denies ear pain or sore throat Cardiovascular Cardiovascular: Denies chest pain or palpitations Respiratory/Chest Respiratory/Chest: Reports cough; Denies dyspnea Gastrointestinal Gastrointestinal: Denies nausea or vomiting Genitourinary Genitourinary ED: Denies dysuria Musculoskeletal Musculoskeletal: Reports myalgias; Denies neck pain Integumentary Denies rash Neurologic Neurologic: Reports headache(s); Denies paresthesias or weakness Endocrine Endocrinology: Denies polydipsia or polyuria Hematologic/Lymphatic Hematologic/Lymphatic: Denies easy bleeding, easy bruising or lymphadenopathy Allergic/Immunologic Allergic/Immunologic ED: Denies urticaria EXAM Physical Exam Const Vital Signs: 05/18/22 04:48 Temperature 100.4 F H Temperature Source Oral Pulse Rate 108 H Respiratory Rate 17 Blood Pressure 128/71 H Blood Pressure Mean 90 Pulse Ox 95 Oxygen Delivery Method Room Air Positive well nourished and well developed General Appearance ED: well developed and NAD; Negative for pallor HEENT Reports moist mucous membranes HEENT Narrative: Mild nasal congestion. No sinus tenderness. No temporal artery tenderness. Eyes PERRL and EOMs intact bilaterally Eyes Narrative: Very mild photophobia. No pain with range of motion. Neck Neck Narrative: Patient can look left right up and down without any discomfort whatsoever. Chest Wall inspection of chest normal Resp normal respiratory effort and clear to auscultation bilaterally Cardio regular rate and regular rhythm GI normal to inspection, nondistended, normoactive bowel sounds Palpation: soft Back/Spine no CVA tenderness Extremity normal to inspection Extremity Narrative: No rashes or vesicles. Psych mental status grossly normal Psych Narrative: Patient is awake alert appropriate. She carries on a normal conversation. Skin General Skin Exam: Negative for jaundice or pallor MDM MDM MDM Narrative Medical decision making narrative: 06:15 I talked with patient again. Her headaches a lot better. She has no nausea. Photophobia seems to be gone. Her COVID is pending and flu are pen ding. I talked with her about a slight elevation of her temperature. She technically does not have a fever but her temperature is up. We discussed that meningitis can present like this. But she has no neck stiffness at all. She does not feel systemically sick. This headache is typical of her migraine. She does not want lumbar puncture. I think in this unique set of circumstances that is reasonable. Plan will be to get her home. We did discuss caution and reasons to return. Patient's COVID is positive. I think this explains her symptoms. She is overall healthy. She is not vaccinated. I do not think she requires Paxil bid. We discussed this. Discharge Plan Triage Chief Complaint: Headache ED Provider: Marcel Godwin Dx/Rx/DC Orders Clinical Impression: COVID, Headache, migraine Instructions: Coronavirus Disease 2019 (COVID-19): Caring for Yourself or Othe rs Prescriptions: No Action Vyvanse 60 mg capsule 60 mg PO DAILY Label Comments: take 1 capsule by mouth every morning Primary Care Provider: Matti Burr Referrals: Matti Burr DO [Primary Care Provider] - 10-14 Days if not better Disposition Disposition: Home, Self Care
[2022-05-18] MEDS: 0.9% Normal Saline 1,000 ML 999 ML IV (05:23)
[2022-05-18] MEDS: DiphenhydrAMINE 50 MG/ML Syringe IV (05:23)
[2022-05-18] MEDS: proCHLORPERazine 10 MG/2 ML Vial IV (05:24)
== END 2022-05-18 07:03 | disposition home or self-care (01) ==
PROVIDERS: Emergency Provider Emergency Medicine; PCP Preventive Medicine Occupational Medicine; Visit Provider Emergency Medicine
DX: U07.1 COVID-19 (principal); G43.909 Migraine, unspecified, not intractable, without status migrainosus; F98.8 Other specified behavioral and emotional disorders with onset usually occurring in childhood and adolescence; F17.210 Nicotine dependence, cigarettes, uncomplicated; Z79.899 Other long term (current) drug therapy
CPT/HCPCS: 87428; 96361; 96374; 96375; 99283; J7030; A4216

== ENCOUNTER 2023-10-27 17:36 | Emergency (ER) | payer MEDICAID, SELFPAY ==
[2023-10-27 17:37] VITALS: BP 127/72; PULSE 89; RESP 14; TEMP 36.8; O2SAT 98; BMI 29.2
[2023-10-27] MEDS: Lidocaine 5% Patch 1 PATCH TOPICAL (18:40)
--- NOTE | 2023-10-27 18:43 | ED.VIS.BACK ---
HPI History of Present Illness Chief Complaint: Back Narrative Narrative: 33-year-old female present with back pain. Its on the right side and its between the thoracic and lumbar area. She states started after picking up her kids at home. There is no direct trauma. No loss of bladder or bowel control. No saddle anesthesia or paresthesia. Patient has no history of back surgeries. No history of kidney stones. No urinary complaints or vaginal complaints. PFSH PFSH Medical History ADD (attention deficit disorder) Alcohol use Back pain History of hysterosalpingogram (~2013) History of IBS Shortness of breath on exertion Smoker Home Medications cyclobenzaprine 10 mg tablet 10 mg PO Q8H 10/27/23 [History Last Taken Unknown] lidocaine 5 % topical patch (Lidoderm) 1 patch topical DAILY #15 ea 10/27/23 [Rx Last Taken Unknown] prednisone 10 mg tablet 30 mg PO 10/27/23 [History Last Taken Unknown] Allergy/AdvReac Type Severity Reaction Status Date / Time No Known Allergies Allergy Verified 10/27/23 17:37 Surgical History Hx of bilateral salpingectomy (~11/21/19) Social History Smoking Status: Current every day smoker tobacco type: cigarettes ROS ROS ED Constitutional Constitutional ED: Denies chills, fever(s) or sweats Eyes Eyes: Denies blurry vision or change in vision ENT ENT ED: Denies ear pain or sore throat Cardiovascular Cardiovascular: Denies chest pain, palpitations or racing heartbeat Respiratory/Chest Respiratory/Chest: Denies cough, dyspnea or sputum Gastrointestinal Gastrointestinal: Denies abdominal pain, constipation, diarrhea, nausea or vomiting Genitourinary Genitourinary ED: Denies dysuria, hematuria or urinary frequency Musculoskeletal Musculoskeletal: Reports back pain; Denies arthralgias, myalgias or neck pain Integumentary Denies abscess, Abrasions or rash Neurologic Neurologic: Denies headache(s), paresthesias or weakness Psychiatric Psychiatric: Denies anxiety, depression, suicidal ideation or suicidal thoughts Endocrine Endocrinology: Denies polydipsia or polyuria EXAM Physical Exam Const Vital Signs: 10/27/23 17:37 Temperature 98.3 F Temperature Source Temporal Pulse Rate 89 Respiratory Rate 14 Blood Pressure 127/72 H Blood Pressure Mean 90 Pulse Ox 98 Oxygen Delivery Method Room Air Positive well nourished General Appearance ED: NAD; Negative for pallor Resp normal respiratory effort and clear to auscultation bilaterally Auscultation: Negative for rales, rhonchi or wheezes Cardio regular rate and regular rhythm GI normal to inspection, nondistended, normoactive bowel sounds Back/Spine Back/Spine Narrative: No reproducible tenderness to palpation in the right lumbar/thoracic area. Pain is reproducible with thoracic rotation. No midline spinal deformity, tenderness, step-off. Extremity normal to inspection Neuro oriented x3 Sensorium / Orientation: alert Psych mental status grossly normal Skin no rashes or lesions noted General Skin Exam: Negative for jaundice or pallor MDM MDM MDM Narrative Medical decision making narrative: Patient presenting with back pain. Is nontraumatic. There is no evidence of cauda equina syndrome or infectious etiology. Patient states this happened after picking up her children. She is been on cyclobenzaprine and prednisone which is not helping. 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 She requested a work note for today. She had to leave early. I do not believe she needs any imaging. She still has muscle relaxers but discussed likelihood that this pain will last several days and she needs to do stretching, icing, heating. She states that she does not get any information on this left from the urgent care and she feels amenable to going home and trying this. She does not want to work no more than 1 day. I offered her work restrictions she declines. Impression: 1. Lumbar strain 2. Thoracic strain Lab Data Attestation: I reviewed the patient's lab results. Discharge Plan Triage Chief Complaint: Back ED Provider: Fortino Ordonez Dx/Rx/DC Orders Instructions: ED Back Spasm, No Trauma Prescriptions: New lidocaine [Lidoderm] 5 % adhesive patch,medicated 1 patch topical DAILY Qty: 15 0RF Rx Instructions: leave on most painful area for up to 12 hrs No Action prednisone 10 mg tablet 30 mg PO Patient Comments: take 4 tablets daily for 3 days then 2 tablets daily for 3 days T... (REFER TO PRESCRIPTION NOTES). cyclobenzaprine 10 mg tablet 10 mg PO Q8H Patient Comments: take 1 tablet by mouth three times a day if needed Stand Alone Forms: ED Work / School Excuse Primary Care Provider: Care Physician,No Primary Referrals: Matti Burr DO [Non-Staff] - Disposition Disposition: Home, Self Care
== END 2023-10-27 18:47 | disposition home or self-care (01) ==
LOC: ED 18:44
PROVIDERS: Emergency Provider Student in an Organized Health Care Education/Training Program; Visit Provider Student in an Organized Health Care Education/Training Program
DX: S39.012A Strain of muscle, fascia and tendon of lower back, initial encounter (principal); S29.019A Strain of muscle and tendon of unspecified wall of thorax, initial encounter; F17.210 Nicotine dependence, cigarettes, uncomplicated; X58.XXXA Exposure to other specified factors, initial encounter
CPT/HCPCS: 99283

== ENCOUNTER 2025-04-06 16:06 | Emergency (ER) | payer SELFPAY ==
[2025-04-06 16:07] VITALS: BP 126/80; PULSE 115; RESP 18; TEMP 37.1; O2SAT 97; BMI 28.0
[2025-04-06 17:06] VITALS: BP 119/74; PULSE 89; O2SAT 100
[2025-04-06 17:22] LABS: Internal QC Validated? YES +Cl - CLEAR BKGD; Record Kit Lot#, Serum Preg. 947241
[2025-04-06 17:29] LABS: Pregnancy, Serum, hCG Quali. NEGATIVE Negative
[2025-04-06 17:32] LABS: Absolute Lymphocyte Count 2.69 X10^3/uL (0.83-4.51); Basophil# 0.07 X10^3/uL; Basophil% 0.7 % (0-1); Eosinophil# 0.13 X10^3/uL; Eosinophils% 1.3 % (0-5); Hematocrit 40.2 % (37-47); Hemoglobin 14.6 g/dL (12.0-15.0); Lymphocyte # 2.69 X10^3/ul (0.83-4.51); Lymphocyte % 26.2 % (19-41); Mean Corp Hgb Conc 36.3 g/dL (32-36); Mean Corpuscular Hgb 36.8 pg (27.0-32.0); Mean Corpuscular Volume 101.3 fL (81-99); Mean Platelet Vol. 8.9 fl (6.2-12.0); Monocyte# 0.37 X10^3/uL; Monocyte% 3.6 % (0-10); NRBC Flagged by Analyzer 0 % (0-5); Neutrophil # 6.97 X10^3/uL (2.7-7.7); Neutrophil % 67.7 % (47-70); Platelet Count 352 K/mm3 (150-450); RBC Distribution Width CV 13.2 % (11.6-14.6); RBC Distribution Width SD 49.3 fl (35.1-43.9); Red Blood Count 3.97 M/mm3 (4.2-5.4); White Blood Count 10.3 K/mm3 (4.4-11.0)
[2025-04-06 17:43] VITALS: BP 119/74; PULSE 85; O2SAT 100
[2025-04-06 17:54] LABS: Anion Gap 15 (5-15); BUN 6 mg/dL (4-19); BUN/Creat Ratio 8.5 RATIO (10-20); Calcium,Total 9.5 mg/dL (7.6-11.0); Chloride 103 mmol/L (98-108); Creatinine, Serum 0.68 mg/dL (0.70-1.20); EST Glomerular Filtration Rate 117 (>60); Estimated Creatinine Clearance 110.68 ml/min (50-250); Glucose 79 mg/dL (70-99); Potassium 3.6 mmol/L (3.3-5.1); Sodium Level 139 mmol/L (133-145)
[2025-04-06 18:59] LABS: Amphetamine Urine PRESUMPTIVE POSITIVE (<1000 ng/mL); Barbiturate Urine NEGATIVE (< 200 ng/mL); Benzodiazepine Urine NEGATIVE (< 200 ng/mL); Buprenorphine Urine NEGATIVE (< 200 ng/mL); Cocaine Urine NEGATIVE (< 300 ng/mL); Fentanyl, Urine NEGATIVE; Methadone Urine NEGATIVE (< 300 ng/mL); Opiates Urine NEGATIVE (< 300 ng/mL); Oxycodone, Urine NEGATIVE (< 100 ng/mL); PCP Urine NEGATIVE (< 25 ng/mL); THC Urine PRESUMPTIVE POSITIVE (< 50 ng/mL)
--- NOTE | 2025-04-06 19:23 | EX.ED.VIS.PS ---
HPI HPI - Psych History of Present Illness Chief Complaint: Mental Health Informant: patient Narrative Narrative: Patient is a 35-year-old female who reports history of PTSD, depression and mood disorder and prior psychiatric hospitalization in 2018. She is presenting with worsening depression. She is quite tearful. She states recently life has been kicking my ass. She states everything is wrong. She is saying she needs help before it is too late. She previously was at [facility]. She states that she just wants it to go away. She denies any suicidal plan or intent at this time but feels that she is hitting rock bottom and states that she needs help. She is looking for psychiatric placement at this time. She denies any homicidal ideations. Does not report any auditory visual hallucinations. States recently that she has been using amphetamines most recently yesterday, THC and had a couple shots of alcohol before coming in. She is not currently on any psychiatric medications and does not follow with a counselor or psychiatrist. No physical complaints at this time. [facility] Medical History Alcohol use Back pain History of IBS Smoker Shortness of breath on exertion History of hysterosalpingogram (~2013) ADD (attention deficit disorder) Home Medications ?Medication ?Instructions ?Recorded ?Last Taken ?Type NK 04/06/25 Unknown History Allergy/AdvReac Type Severity Reaction Status Date / Time No Known Allergies Allergy Verified 04/06/25 16:10 Family History no significant family his Surgical History Hx of bilateral salpingectomy (~11/21/19) Social History Smoking Status: Current every day smoker tobacco type: cigarettes ROS ROS ED Constitutional Constitutional ED: Denies chills or fever(s) Cardiovascular Cardiovascular: Denies chest pain Respiratory/Chest Respiratory/Chest: Denies dyspnea Gastrointestinal Gastrointestinal: Denies abdominal pain, nausea or vomiting Musculoskeletal Musculoskeletal: Denies arthralgias or myalgias Integumentary Denies rash Psychiatric Psychiatric: Reports anxiety and depression; Denies suicidal ideation or suicidal thoughts EXAM Physical Exam Const Vital Signs: 04/06/25 16:07 04/06/25 17:06 04/06/25 17:43 Temperature 98.7 F Temperature Source Oral Pulse Rate 115 H 89 85 Respiratory Rate 18 Blood Pressure 126/80 H 119/74 119/74 Blood Pressure Mean 95 89 89 Pulse Ox 97 100 100 Oxygen Delivery Method Room Air Room Air Room Air Positive well nourished and well developed Constitutional Narrative: Patient is quite tearful General Appearance ED: well developed and NAD HEENT Reports moist mucous membranes Eyes PERRL and EOMs intact bilaterally Eyes Narrative: Mildly injected conjunctive bilaterally Neck supple Resp normal respiratory effort and clear to auscultation bilaterally Cardio Rate: regular rate Rhythm: regular rhythm Neuro oriented x3 Sensorium / Orientation: alert Motor Exam: muscle tone normal throughout Psych cooperative Appearance: grossly normal Attitude: other Slightly withdrawn endocrine Activity / Motor Behavior: avoids eye contact Speech: normal speech Mood & Affect: depressed, sad and tearful Thought Process: normal thought process Thought Content: normal thought content Attention / Concentration: attention grossly intact Memory / Cognition: memory grossly intact and cognition grossly impaired Insight: fair Judgement: fair and limited Skin Lesions: no lesions Rashes: no rashes MDM MDM MDM Narrative Medical decision making narrative: Patient evaluated for worsening depression. Sounds like she gave to the point that she is having passive suicidal ideations and is seeking psychiatric help. She has no outpatient support at this time. Patient is medically cleared. Will obtain evaluation by the counseling center. Patient medically cleared. Evaluated by counseling center. They will work on placement. She at this time will be placed under voluntary. She does not have a pink slip. Lab Data Labs: Laboratory Results - last 24 hr 04/06/25 04/06/25 17:02 18:11 WBC 10.3 RBC 3.97 L Hgb 14.6 Hct 40.2 MCV 101.3 H MCH 36.8 H MCHC 36.3 H RDW Std Deviation 49.3 H RDW Coeff of Ioana 13.2 Plt Count 352 MPV 8.9 Immature Gran % (Auto) 0.500 Neut % (Auto) 67.7 Lymph % (Auto) 26.2 Mchenry % (Auto) 3.6 Eos % (Auto) 1.3 Baso % (Auto) 0.7 Absolute Neuts (auto) 7.0 Absolute Lymphs (auto) 2.69 Nucleated RBC % 0 Sodium 139 Potassium 3.6 Chloride 103 Carbon Dioxide 21.0 Anion Gap 15 BUN 6 Creatinine 0.68 L Estim Creat Clear Calc 110.68 Est GFR (MDRD) Non-Af 117 BUN/Creatinine Ratio 8.5 L Glucose 79 Calcium 9.5 Serum , Qual NEGATIVE Urine Opiates Screen NEGATIVE U Buprenorphine Qual NEGATIVE Ur Oxycodone Screen NEGATIVE Urine Methadone Screen NEGATIVE Urine Fentanyl Screen NEGATIVE Ur Barbiturates Screen NEGATIVE Ur Phencyclidine Scrn NEGATIVE Ur Amphetamines Screen PRESUMPTIVE POSITIVE U Benzodiazepines Scrn NEGATIVE Urine Cocaine Screen NEGATIVE U Cannabinoids Screen PRESUMPTIVE POSITIVE Ethyl Alcohol 25.0 H Management Discussion w/another healthcare provider: Behavioral health Discharge Plan Triage Chief Complaint: Mental Health ED Provider: Ciara Wright Dx/Rx/DC Orders Clinical Impression: Depression, Amphetamine use Prescriptions: No Action NK Primary Care Provider: Care Physician,No Primary Referrals: Care Physician,No Primary [Primary Care Provider] - Print Language: Omani
--- NOTE | 2025-04-06 19:40 | EKG12_ITS ---
Test Reason : [facility] [place] Pressure : */* mmHG Vent. Rate : 76 BPM Atrial Rate : 76 BPM P-R Int : 162 ms QRS Dur : 90 ms QT Int : 370 ms P-R-T Axes : 54 43 28 degrees QTcB Int : 416 ms Normal sinus rhythm Normal ECG Confirmed by Bernardo Ralph ([id number]), design editor MARCIA QUINTEROS ([id number]) on 04/14/2025 1:16:24 PM Referred By: Confirmed By: Bernardo Ralph
[2025-04-07 02:00] VITALS: BP 110/69; PULSE 64; RESP 16; TEMP 36.6; O2SAT 99
[2025-04-07 10:00] VITALS: BP 124/78; PULSE 74; RESP 14; O2SAT 99
--- NOTE | 2025-04-07 13:05 | ED.RN ---
THIS RN CALLED CRISIS FOR AN UPDATE. CRIS STATES THAT SHE HAS CALLED [facility] MULTIPLE TIMES THIS MORNING AND SHE IS STILL UNDER REVIEW. SHE STATES A CLINICIAN WILL BE OUT THIS AFTERNOON FOR 24 HOUR RE-EVAL AND KEEP US UPDATED
--- NOTE | 2025-04-07 13:16 | ED.RN ---
Patient becoming increasingly agitated that she is still here in the ER and has not heard whether she has been accepted or not at facility. She is wanting to go smoke a cigarette. I advised her that this is a no smoke facility and that if she left she would be discharged. This nurse offered a nicotine patch or gum, and also offered medication to help with her increasing anxiety. She stated that the only thing that would help would be a cigarette. Patient's sister is at the bedside.
[2025-04-07] MEDS: LORazepam 0.5 MG Tablet PO ×2 (13:31→21:31)
[2025-04-07 18:25] VITALS: BP 119/72; PULSE 53; RESP 14; O2SAT 98
--- NOTE | 2025-04-07 21:20 | ED.RN ---
per pt it is ok to give her sister Baylee information over the phone.
[2025-04-08 03:19] VITALS: BP 113/64; PULSE 95; RESP 16; O2SAT 99
--- NOTE | 2025-04-08 04:46 | ED.RN ---
Pt insurance is ineligible per registration, pt only option is [facility]. Informed pt of same, pt shows signs of agitation; biting her lip, sighing, shaking her leg, offered pt medication or any other needs and patient denies.
--- NOTE | 2025-04-08 09:11 | PCA ---
ADMIN IS REVIEWING THE CHART I CALLED AT [phone]
--- NOTE | 2025-04-08 09:52 | ED.RN ---
Pt getting frustrated with waiting for [facility]. She knows she is not pink slipped and made the comment, I am here voluntarily and this is why I don't come and get help because no one cares enough to get me help. Per pt sister is on the way here. I did tell the pt I was glad she was here and I appreciated her patience. She is tearful.
--- NOTE | 2025-04-08 09:52 | PCA ---
[facility] CALLED AT [phone] AND DENIED HER PLACEMENT. SAID THEY RECOMMEND A RAPID OUTPATIENT PROGRAM TO GET HER ESTABLISHED SOMEWHERE
--- NOTE | 2025-04-08 10:06 | ED.RN ---
Bedside handoff was given by this nurse to Kaitlin Buck While in there, pt was told that [facility] had declined her. Pt started crying and asked for her belongings. Pt is not pink slipped so I can't hold her. Pt was told that crisis is coming to talk to her. She said that she wanted her belongings and if she didn't decide to leave before they got here she would talk to them. I spoke with [facility] and she was going to talk to her also.
--- NOTE | 2025-04-08 10:30 | CM.ED ---
Social Work SW met with patient, introduced self and role with hospital. Patient expressed frustration with amount of time spend in the ED. SW explained that Crisis would be coming back in to speak with patient and SW asked patient if she was willing to wait unit someone was able to come to hospital. SW explained to patient since Crisis was the one to initially assess patient that crisis would like to be the one to speak with patient again. Patient stated she would wait as long as it wasn't a long length of time. SW told patient it should be within the next hour or so but if for any reason patient was unable to wait to let the nurse know and SW would come back in to discuss options. Patient expressed understanding. Martha Hurd, TREASURY SPECIALIST, STRATEGIC ACCOUNTS MANAGER
--- NOTE | 2025-04-08 11:35 | ED.RN ---
Pt very agitated and tearful. Pt needed discharge instructions or note for work so that she doesn't lose her job. Pt upset because it was explained that we are waiting on discharge instructions. Pt stated that it's bullshit because she has been sitting here for 2 days and no doctors have seen her except the initial one. I asked the pt is a work note showing the times she was here would work if she didn't want to wait on paperwork. She stated that as long as it had the dates and times for coming in and discharge were on it and that she was seen for mental health eval and wasn't able to send her anywhere. This was done and pt asked if we could put her discharge papers in an envelope and put it at the triage desk. I apologized several times to the patient and she said thank you. She continued to be tearful.
--- NOTE | 2025-04-08 17:21 | ED.RN ---
Dr valle did not want to do discharge papers due to not seeing the patient.
== END 2025-04-08 12:30 | disposition home or self-care (01) ==
LOC: ED 17:24
PROVIDERS: Emergency Provider Emergency Medicine; Visit Provider Emergency Medicine
DX: F32.A Depression, unspecified (principal); F41.9 Anxiety disorder, unspecified; F15.90 Other stimulant use, unspecified, uncomplicated; F17.210 Nicotine dependence, cigarettes, uncomplicated
CPT/HCPCS: 80048; 80307; 82077; 84703; 85025; 93005; 99283